=== PATIENT | male | born 1935 | race Caucasian/White ===

== ENCOUNTER → 2017-04-05 | Outpatient (CLI) | payer MEDICARE, BC ==
[~2017-04-05] MED LIST: ACET-1966 PO; ALL300 PO; AMIO400T9 PO; AMLO2.5T74 PO; ASPI-1471 PO; ASPI-757 PO; ASPI81TA94 PO; ATE50 PO; ATEN-1 PO; ATOR10TA65 PO; ATOR20TA65 PO; ATOR40TA24 PO; BIMA2.5D5 OP; BIMOD OP; CEFU250T11 PO; CEP500 PO; CEPH500T7 PO; CIPR-344 PO; CLIN-75 PO; FAM20 PO; FAMO20TA28 PO; FLUT16SP19 NS; FURO-45 PO; FURO-47 PO; FURO20TA19 PO; IBUP600T22 PO; LEVO50TA86 PO; LOR5/325 PO; MEPE50TA29 PO; METO100T20 PO; OLME1TAB53 PO; OLME20TA PO; OLME40TA17 PO; PHEN200T32 PO; POTA20PA25 PO; POTA20TA94 PO; SIMV-44 PO; SULF-198 PO; WARF6TAB36 PO; [UNRECOGNIZED DRUG - CODE] IV
[2017-04-05 12:34] LABS: PLATELET COUNT, AUTOMATED 172 K/uL (150-450)
== END ==
LOC: LAB 12:27
PROVIDERS: ATTEND Family Medicine
DX: I10 Essential (primary) hypertension (principal); I50.9 Heart failure, unspecified
CPT/HCPCS: 36415; 82040; 82247; 82310; 82374; 82435; 82565; 82947; 84075; 84132; 84155; 84295; 84450; 84460; 84520; 85025

== ENCOUNTER 2017-06-29 10:30 | Outpatient (RCR) | payer MEDICARE, BC ==
--- NOTE | 2017-04-10 15:58 | PT INITIAL EVALUATION ---
MEDICAL DIAGNOSIS: M62.9, R26.89, M54.5 TREATMENT DIAGNOSIS: same and cervical neck pain DATE OF ONSET: 11/08/16 SUBJECTIVE: Urban Richard presents to physical therapy with complaints of neck pain, low back pain, impaired gait, mobility, and imbalance along with increased hamstring tightness. He reports that he feels like his neck pain is the worst and is currently not driving due to his painful neck since he is restricted with turning his heads. As a result, he would like to improve his neck pain and AROM first and then work on his low back pain and then his walking, balance, flexibility, and strength will follow. 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 He then reports that he went to cardiac rehab for a few months. He states that the neck pain developed prior to the valve replacement and cardiac rehab and believes that it was probably 5-6 months ago. He reports that the neck pain is intermittent and rates it to be 3-4/10 when performing aggravating factors such as bending, turning, or is on the move. He states that the neck pain is better with sitting or being still. Furthermore, he reports that he had a fall in December 2016 without any injuries and since the fall he reports that he has been using a cane. He also reports that his low back pain comes and goes and is much better than his neck pain. He reports that his low back pain feels better with Tylenol, being still, and sitting. He reports that his low back pain becomes worse with bending, prolonged standing, prolonged walking, and on the move and rates it to be 1-2/10. He denies the following symptoms: dizziness , tinnitus, nausea, swallowing, abnormal gait: upper limbs, night pain, unexplained weight loss, recent neck or low back surgeries, or any accidents. Pain location is C3-7 facet joints, T5-8 spinous processes, over B PSIS/gluteal folds and described as achy and mild sharp. 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 ROM: Cervical AROM: protrusion: major loss of motion with empty end feel. flexion: moderate loss of motion with empty end feel. retraction: major loss of motion with empty end feel. extension: major loss of motion with empty end feel. lateral flexion R: major loss of motion with empty end feel. lateral flexion L: major loss of motion with empty end feel. rotation R: moderate loss of motion with normal end feel. rotation L: major loss of motion with empty end feel Strength: Core (lower, middle, upper): 4-/5. B hip flexion, extension, abduction , B ankle DF, and B knee flexion: 4-/5. B hip adduction, B knee extension, and B ankle PF: 4/5. Palpation: TTP: C3-7 facet joints, T5-8 spinous processes, over B PSIS/gluteal fold Special Tests: Repeated retraction: pain during the test and better following the test with improved cervical AROM. Repeated retraction and extension: pain during the test and better following the test with improved cervical AROM. Will examine his low back, balance, and gait in the next few weeks once his neck pain has abolished. Mobility: Modified Independent Gait: With cane AD, he demonstrates the following gait mechanics: increased base of support, decreased B step lengths, no LOB, decreased velocity, decreased single limb stance phases, increased double limb support, and decreased B pelvic rotation. Other Objective Findings: Triceps, biceps, and brachioradialis: bilaterally 2+ ASSESSMENT: Corky will benefit from skilled physical therapy to address the listed impairments to improve function and QOL. Based on the signs and symptoms , he demonstrated a cervical derangement that responded well with increased AROM and decreased pain with extension based principles. Short Term Goals 2 weeks: Pt will demonstrate centralized neck pain with increased cervical AROM in all directions to improve function and QOL. 4 weeks: Pt will demonstrate abolished neck pain with increased cervical AROM in all directions with normalized end feels to improve function and QOL. 6 weeks: Pt will demonstrate centralized low back pain to improve function and QOL. 8 weeks: Pt will demonstrate abolished low back pain with increased lumbar AROM in all directions with normalized end feels to improve function and QOL. 10 weeks: Pt will demonstrate improved hamstring flexibility, increased core strength along with B LE's from baseline to greater than 4/5, along with improved gait mechanics, and improved balance strategies to reduce falls and increased QOL. Patient's Goals improve cervical neck pain along with range of motion and then improve his low back pain and then improve strength, balance, and gait. PLAN: Patient to be seen for Manual Therapy/STM/MET Strengthening/condition Range of Motion Spinal Stabilization Work Hardening/Cond Stretching Neuromuscular Re-ed Closed Chain Program Posture/Body mechanics Gait Trg/Balance Trg Home Exercise Program Therapeutic Activities 2x/Week for 10 weeks If you have any questions, comments, or concerns about this report or plan, please contact me at . Thank you, Georges Leonardo, PT, DPT MTDD
--- NOTE | 2017-05-29 09:41 | PT PLAN OF CARE ---
Physician: Ava Navarrete MD Patient is being seen: 2x/week Therapist: Georges Leonardo, PT, DPT Medical Diagnosis: M62.9, R26.89, M54.5 Treatment Diagnosis: same and cervical neck pain Date of Onset: 11/08/16 Date of Initial Evaluation: 04/10/17 Date patient was last seen: 05/28/17 Number of treatments: 10 Number of cancellations/No shows: 0 INTERVENTIONS: Manual Therapy/STM/MET Strengthening/condition Range of Motion Spinal Stabilization Work Hardening/Cond Stretching Neuromuscular Re-ed Closed Chain Program Posture/Body mechanics Gait Trg/Balance Trg Home Exercise Program Therapeutic Activities GOALS: 2 weeks: Pt will demonstrate centralized neck pain with increased cervical AROM in all directions to improve function and QOL.MET 4 weeks: Pt will demonstrate abolished neck pain with increased cervical AROM in all directions with normalized end feels to improve function and QOL. MET 6 weeks: Pt will demonstrate centralized low back pain to improve function and QOL. 8 weeks: Pt will demonstrate abolished low back pain with increased lumbar AROM in all directions with normalized end feels to improve function and QOL. 10 weeks: Pt will demonstrate improved hamstring flexibility, increased core strength along with B LE's from baseline to greater than 4/5, along with improved gait mechanics, and improved balance strategies to reduce falls and increased QOL. PATIENT'S GOAL: improve cervical neck pain along with range of motion and then improve his low back pain and then improve strength, balance, and gait. Status of Patient's Goals: Progressing Patient Compliance: Good Prognosis: Good Reasons for continuing therapy: This is a progress note for Corky Ramos. He reports that he is doing well. He reports that he feels like his neck pain has resolved. He reports that his neck motion has increased and is no longer painful. He reports that he would like to transition from treating his neck pain to improving his balance and gait mechanics along with improving his endurance. He has met all of his goals within his neck. His neck disability went from 34% impairment to 4.4%, which is a significant improvement. Moving forward, we will continue to improve posture via stretches and home stretches along with improving balance strategies and gait mechanics. We would also like to address his core and B LE strength to return to prior level of function. Posture: He demonstrated forward head, increased thoracic kyphosis, and decreased lumbar lordosis. ROM: Cervical AROM: protrusion: minimal loss of motion with normal end feel. flexion: minimal loss of motion with normal end feel. retraction: minimal loss of motion with normal end feel. extension: minimal of motion with normal end feel. lateral flexion R: minimal loss of motion with normal end feel. lateral flexion L: minimal loss of motion with normal end feel. rotation R: minimal loss of motion with normal end feel. rotation L: minimal loss of motion with normal end feel. Strength: Core (lower, middle, upper): 4-/5. B hip flexion, extension, abduction , B ankle DF, and B knee flexion: 4-/5. B hip adduction, B knee extension, and B ankle PF: 4/5. Palpation: TTP: over B PSIS/gluteal fold Special Tests: Repeated retraction with L side bending: pain during the test and better following the test with improved cervical AROM. Will examine his low back, balance, and gait on the next session Mobility: Modified Independent If you have any questions, please contact me at [phone]. Thank you, Georges Leonardo, PT, DPT MIKKI
[~2017-06-29 10:30] MED LIST changes: +ALLO-119 PO; +AMIO400T10 PO; -AMIO400T9 PO; +OLM20 PO; -OLME20TA PO
--- NOTE | 2017-06-29 11:30 | PT PLAN OF CARE ---
Physician: Ava Navarrete MD Patient is being seen: 2x/week Therapist: Georges Leonardo, PT, DPT Medical Diagnosis: M62.9, R26.89, M54.5 Treatment Diagnosis: same and cervical neck pain Date of Onset: 11/08/16 Date of Initial Evaluation: 04/10/17 Date patient was last seen: 06/29/17 Number of treatments: 19 Number of cancellations/No shows: 1 INTERVENTIONS: Manual Therapy/STM/MET Strengthening/condition Range of Motion Spinal Stabilization Work Hardening/Cond Stretching Neuromuscular Re-ed Closed Chain Program Posture/Body mechanics Gait Trg/Balance Trg Home Exercise Program Therapeutic Activities GOALS: 2 weeks: Pt will demonstrate centralized neck pain with increased cervical AROM in all directions to improve function and QOL.MET 4 weeks: Pt will demonstrate abolished neck pain with increased cervical AROM in all directions with normalized end feels to improve function and QOL. MET 6 weeks: Pt will demonstrate centralized low back pain to improve function and QOL. MET 8 weeks: Pt will demonstrate abolished low back pain with increased lumbar AROM in all directions with normalized end feels to improve function and QOL. MET 10 weeks: Pt will demonstrate improved hamstring flexibility, increased core strength along with B LE's from baseline to greater than 4/5, along with improved gait mechanics, and improved balance strategies to reduce falls and increased QOL. MET PATIENT'S GOAL: improve cervical neck pain along with range of motion and then improve his low back pain and then improve strength, balance, and gait. Status of Patient's Goals: Progressing Patient Compliance: Good Prognosis: Good Reasons for continuing therapy: This is a discharge note for [facility]. He reports that he is doing much better. He reports that his neck is doing well. He denies any neck pain and states that his range of motion has significantly improved with his specific exercise. He reports that he feels like his strength , walking, endurance, pain is much better than it was prior to his illness. He reports that he is doing his home exercise program and does not current have any problems. He has progressed well within PT and has demonstrated the following improvements: neck pain and disability outcome measure improved from 34% to 4.4%, which is a significant amount, cervical AROM improved in all directions with normal-muscular end feels, and his balance strategies improved in all conditions (complaint surface, eyes opened/eyes closed, SLS, normal base of support, decreased based of support). Furthermore, he demonstrated improvements with core and B LE strength along with improved flexibility, however, his posture and flexibility is perfect, it will improve with his home exercise program if he continues to be diligent with it. He has met all of his goals. As a result, he will be discharged from PT. Posture: He demonstrated forward head, increased thoracic kyphosis, and decreased lumbar lordosis. ROM: Cervical AROM: protrusion: minimal loss of motion with normal end feel. flexion: minimal loss of motion with normal end feel. retraction: minimal loss of motion with normal end feel. extension: minimal of motion with normal end feel. lateral flexion R: minimal loss of motion with normal end feel. lateral flexion L: minimal loss of motion with normal end feel. rotation R: minimal loss of motion with normal end feel. rotation L: minimal loss of motion with normal end feel. Strength: Core (lower, middle, upper): 4/5. B hip flexion, extension, abduction , B ankle DF, and B knee flexion: 4+/5. B hip adduction, B knee extension, and B ankle PF: 4+/5. Balance: Firm surface, eyes opened, normal base of support: 60 seconds, firm surface, eyes closed, normal base of support: 60 seconds. firm surface, eyes closed, decreased base of support: 60 seconds, firm surface, eyes opened, decreased base of support: 60 seconds, complaint surface, eyes opened, normal base of support: 60 seconds, complaint surface, eyes closed, normal base of support: 60 seconds. complaint surface, eyes opened, decreased base of support: 60 seconds. complaint surface, eyes closed, decreased base of support: 60 seconds. compliant surface, tandem stance R/L: 30 seconds with eyes opened. compliant surface, tandem stance R/L, eye closed: 5-10 seconds. Mobility: Modified Independent If you have any questions, please contact me at [phone]. Thank you, Georges Leonardo, PT, DPT ELLEND
[2017-07-10] MEDS ORDERED: LEVO50TA86 PO (09:29)
== END 2017-07-09 ==
LOC: PT 10:30
PROVIDERS: ATTEND Family Medicine
DX: M62.9 Disorder of muscle, unspecified (principal); R26.89 Other abnormalities of gait and mobility; M54.5 Low back pain; M54.2 Cervicalgia; Z95.0 Presence of cardiac pacemaker; Z95.2 Presence of prosthetic heart valve
CPT/HCPCS: 97163

== ENCOUNTER → 2017-09-03 | Outpatient (CLI) | payer MEDICARE, BC ==
[~2017-09-03] MED LIST changes: +POTA20TA10 PO; +WARF6TAB13 PO; -WARF6TAB36 PO
[2017-09-03 09:54] LABS: PLATELET COUNT, AUTOMATED 154 K/uL (150-450)
== END ==
LOC: LAB 09:35
PROVIDERS: ATTEND Internal Medicine Nephrology
DX: Z12.9 Encounter for screening for malignant neoplasm, site unspecified (principal); N18.3 Chronic kidney disease, stage 3 (moderate); R80.1 Persistent proteinuria, unspecified; D50.9 Iron deficiency anemia, unspecified
CPT/HCPCS: 36415; 82040; 82247; 82310; 82374; 82435; 82565; 82570; 82728; 82947; 83540; 83550; 84075; 84132; 84155; 84156; 84295; 84450; 84460; 84520; 84550; 85025

== ENCOUNTER 2017-11-03 18:59 | Observation (INO) | payer MEDICARE, BC ==
[~2017-11-03] VITALS: Ht 172.7 cm; Wt 74.6 kg
--- NOTE | 2017-11-03 19:30 | ER Report ---
History and Physical Time Seen By MD: 19:11 Hx. of Stated Complaint: Pt is reporting back pain for a few weeks. No known falls. Pain is worse tonight. HPI/ROS CHIEF COMPLAINT: low back pain HISTORY OF PRESENT ILLNESS: This is an 82 year old male. He is having low back pain, both sides, just above the hips. Has some history of chronic pain in this area, but worsened today. He did some exercising at the [employer] yesterday. No particular activity hurt his back. He had the pain this morning, worsening through the day. No radiation. No pain into the legs and no numbness in the legs. Worsens with movement. Has several bowel movements daily, normal today. Has urinated without pain, urine a darker yellow color. No blood in the stools. No nausea or vomiting. Eating and drinking alright today. No fevers or chills, but has been a little sweaty today. No chest pain or shortness of breath. REVIEW OF SYSTEMS: As above. Allergies: Coded Allergies: vancomycin (Unverified Allergy, Severe, ITCHING, RASH, 03/22/16) hydrocodone (Verified Allergy, Mild, NAUSEA AND VOMITING , 03/22/16) Penicillins (Verified Allergy, Unknown, 03/22/16) phenazopyridine (Verified Allergy, Unknown, NAUSEA AND VOMITING, 03/22/16) adhesive tape (Verified Adverse Reaction, Mild, 03/22/16) Home Meds Active Scripts Atorvastatin Calcium (ATORVASTATIN CALCIUM) 10 Mg Tablet, 1 TAB PO QDAY for 90 Days, #90 TAB 4 Refills Prov:MANAS RAMIREZ MD 08/28/17 Potassium Chloride (Potassium Chloride) 20 Meq Tablet.er, 20 MEQ PO DAILY for 90 Days, #90 TAB 4 Refills Prov:MANAS RAMIREZ MD 08/10/17 Levothyroxine Sodium (LEVOTHYROXINE SODIUM) 50 Mcg Tablet, 1 TAB PO QDAY, #90 TAB 4 Refills Prov:MANAS RAMIREZ MD 07/10/17 Allopurinol (ZYLOPRIM) 300 Mg Tablet, 1 TAB PO QDAY, #90 TAB 4 Refills Prov:MANAS RAMIREZ MD 06/08/17 Furosemide (FUROSEMIDE) 40 Mg Tablet, 1 TAB PO DAILY, #90 TAB 3 Refills Prov:MANAS RAMIREZ MD 04/27/17 Metoprolol Succinate (METOPROLOL SUCCINATE) 100 Mg Tab.er.24h, 1 TAB PO QDAY, # 90 TAB 4 Refills Prov:MANAS RAMIREZ MD 04/11/17 Reported Medications Aspirin (ASPIR 81) 81 Mg Tablet.dr, 1 TAB PO QDAY, TAB 04/05/17 Discontinued Reported Medications Clindamycin Hcl (CLINDAMYCIN HCL) 150 Mg Capsule, 4 CAP PO DIRECTED 4 caps 1 hour prior to dental appt. 04/05/17 Past Medical/Surgical History Renal cancer with left nephrectomy, partial cystectomy, chronic kidney disease, pacemaker, aortic valve replacement, hypertension, hypothyroidism, dementia, low back pain Patient with DNR/DNI status. Reviewed Nurses Notes: Yes Hx Smoking: No Smoking Status: Never Smoker Exposure to Second Hand Smoke?: No Hx Substance Use Disorder: No Hx Alcohol Use: Yes (RARE) Constitutional Vital Sign - Last 24 Hours 11/03/17 11/03/17 11/03/17 11/03/17 19:05 19:07 19:09 19:14 Temp 99.3 Pulse 85 77 71 Resp 16 B/P (MAP) 136/97 136/97 (110) Pulse Ox 93 93 94 O2 Delivery Room Air 11/03/17 11/03/17 11/03/17 11/03/17 19:19 19:30 19:34 19:42 Pulse 71 70 B/P (MAP) 118/75 (89) 125/84 (98) Pulse Ox 91 91 11/03/17 11/03/17 11/03/17 11/03/17 19:49 20:00 20:20 20:50 Pulse 72 70 70 B/P (MAP) 104/84 (91) Pulse Ox 89 91 11/03/17 11/03/17 11/03/17 11/03/17 20:55 21:00 21:02 21:10 Pulse 70 76 B/P (MAP) 132/89 (103) 132/89 (103) Pulse Ox 88 91 11/03/17 11/03/17 11/03/17 11/03/17 21:25 21:30 21:40 21:55 Pulse 74 75 81 B/P (MAP) 133/86 (102) Pulse Ox 91 93 91 11/03/17 11/03/17 11/03/17 11/03/17 22:00 22:15 22:30 22:45 Pulse 78 77 81 73 B/P (MAP) 122/90 (101) 116/90 (99) Pulse Ox 87 91 89 92 11/03/17 11/03/17 11/03/17 11/03/17 22:50 22:55 23:00 23:10 Pulse 70 70 70 B/P (MAP) 104/72 (83) Pulse Ox 92 91 92 11/03/17 11/03/17 11/03/17 23:25 23:30 23:40 Pulse 75 70 B/P (MAP) 104/70 (81) Pulse Ox 93 92 Physical Exam General Appearance: The patient is alert. no acute distress at rest. Has some distress when he tries to sit up or move. Eyes: Pupils are equal, round. No pallor, injection or icterus. ENT: Mucous membranes are moist. Neck: Supple and non tender. Respiratory: Lungs are clear to auscultation. Cardiovascular: Regular rate and rhythm. No murmurs, gallops or rubs. Normal capillary refill. No edema. Normal DP and PT pulses in the feet. Gastrointestinal: Abdomen is soft, some pain with deep palpation in the right lower abdomen. Nondistended. No rebound or guarding. Normal active bowel sounds. No pulsatile or other masses. Neurological: Alert and oriented x3. No focal neurologic deficits. Normal sensation in the lower extremities bilaterally. Diminished pulses, but equal. Skin: Warm and dry. No rashes. Musculoskeletal: Extremities without pain. Nor Full range of motion. Pain in the lower lumbar area both sides, paraspinous area with tightness, but no pain right over the spine. minimal sciatic area pain. No pain in the upper back. DIFFERENTIAL DIAGNOSIS: After history and physical exam, differential diagnosis was considered for low back pain, appears to be muscle spasm, but with a component in the right lower abdomen, concerning for other intraabdominal pathology, but less likely than simple back pain, also consider urinary tract infection. Medical Decision Making Data Points Result Diagram: 11/03/17193211/03/171932 Laboratory Hematology Test 11/03/17 19:33 11/03/17 20:16 Red Blood Count 4.48 M/uL (4.00-5.60) Mean Corpuscular Volume 95.2 fL (80.0-96.0) Mean Corpuscular Hemoglobin 32.8 pg (26.0-33.0) Mean Corpuscular Hemoglobin Concent 34.5 g/dL (32.0-36.0) Red Cell Distribution Width 14.8 % (11.5-14.5) Mean Platelet Volume 8.0 fL (7.2-11.1) Neutrophils (%) (Auto) 72.7 % (39.4-72.5) Lymphocytes (%) (Auto) 14.9 % (17.6-49.6) Monocytes (%) (Auto) 11.0 % (4.1-12.4) Eosinophils (%) (Auto) 0.5 % (0.4-6.7) Basophils (%) (Auto) 0.9 % (0.3-1.4) Nucleated RBC Relative Count (auto) 0.1 /100WBC Neutrophils # (Auto) 8.3 K/uL (2.0-7.4) Lymphocytes # (Auto) 1.7 K/uL (1.3-3.6) Monocytes # (Auto) 1.2 K/uL (0.3-1.0) Eosinophils # (Auto) 0.1 K/uL (0.0-0.5) Basophils # (Auto) 0.1 K/uL (0.0-0.1) Nucleated RBC Absolute Count (auto) 0.01 K/uL Erythrocyte Sedimentation Rate 29 mm/HOUR (0-20) Sodium Level 141 mmol/L (137-145) Potassium Level 4.0 mmol/L (3.5-5.0) Chloride Level 105 mmol/L (98-107) Carbon Dioxide Level 23 mmol/L (22-30) Blood Urea Nitrogen 27 mg/dl (9-21) Creatinine 1.40 mg/dl (0.66-1.25) Glomerular Filtration Rate Calc 48.5 Random Glucose 108 mg/dl (75-110) Calcium Level 8.8 mg/dl (8.4-10.2) Total Bilirubin 1.1 mg/dl (0.2-1.3) Aspartate Amino Transf (AST/SGOT) 27 U/L (0-35) Alanine Aminotransferase (ALT/SGPT) 17 U/L (0-56) Alkaline Phosphatase 49 U/L (0-126) C-Reactive Protein 5.2 mg/dl (<1.0) Total Protein 7.6 g/dl (6.3-8.2) Albumin 4.1 g/dl (3.5-5.0) Urine Color Yellow Urine Clarity Clear Urine pH 6.0 pH (4.8-9.5) Urine Specific [place] 1.013 Urine Protein Negative mg/dL (NEGATIVE) Urine Glucose (UA) Negative mg/dL (NEGATIVE) Urine Ketones Negative mg/dL (NEGATIVE) Urine Blood Small (NEGATIVE) Urine Nitrite Negative (NEGATIVE) Urine Bilirubin Negative (NEGATIVE) Urine Urobilinogen Negative mg/dL (0.2-1.9) Urine Leukocyte Esterase Negative (NEGATIVE) Urine RBC 7 /HPF (0-2/HPF) Urine WBC 4 /HPF (0-5/HPF) Urine Squamous Epithelial Cells Many /LPF (</=FEW) Urine Bacteria Negative /HPF (NONE-FEW) Urine Mucus None /HPF (NONE-FEW) Chemistry Test 11/03/17 19:33 11/03/17 20:16 White Blood Count 11.3 k/uL (4.5-11.0) Red Blood Count 4.48 M/uL (4.00-5.60) Hemoglobin 14.7 g/dL (14.0-18.0) Hematocrit 42.6 % (42.0-52.0) Mean Corpuscular Volume 95.2 fL (80.0-96.0) Mean Corpuscular Hemoglobin 32.8 pg (26.0-33.0) Mean Corpuscular Hemoglobin Concent 34.5 g/dL (32.0-36.0) Red Cell Distribution Width 14.8 % (11.5-14.5) Platelet Count 147 K/uL (150-450) Mean Platelet Volume 8.0 fL (7.2-11.1) Neutrophils (%) (Auto) 72.7 % (39.4-72.5) Lymphocytes (%) (Auto) 14.9 % (17.6-49.6) Monocytes (%) (Auto) 11.0 % (4.1-12.4) Eosinophils (%) (Auto) 0.5 % (0.4-6.7) Basophils (%) (Auto) 0.9 % (0.3-1.4) Nucleated RBC Relative Count (auto) 0.1 /100WBC Neutrophils # (Auto) 8.3 K/uL (2.0-7.4) Lymphocytes # (Auto) 1.7 K/uL (1.3-3.6) Monocytes # (Auto) 1.2 K/uL (0.3-1.0) Eosinophils # (Auto) 0.1 K/uL (0.0-0.5) Basophils # (Auto) 0.1 K/uL (0.0-0.1) Nucleated RBC Absolute Count (auto) 0.01 K/uL Erythrocyte Sedimentation Rate 29 mm/HOUR (0-20) Glomerular Filtration Rate Calc 48.5 Calcium Level 8.8 mg/dl (8.4-10.2) Total Bilirubin 1.1 mg/dl (0.2-1.3) Aspartate Amino Transf (AST/SGOT) 27 U/L (0-35) Alanine Aminotransferase (ALT/SGPT) 17 U/L (0-56) Alkaline Phosphatase 49 U/L (0-126) C-Reactive Protein 5.2 mg/dl (<1.0) Total Protein 7.6 g/dl (6.3-8.2) Albumin 4.1 g/dl (3.5-5.0) Urine Color Yellow Urine Clarity Clear Urine pH 6.0 pH (4.8-9.5) Urine Specific [place] 1.013 Urine Protein Negative mg/dL (NEGATIVE) Urine Glucose (UA) Negative mg/dL (NEGATIVE) Urine Ketones Negative mg/dL (NEGATIVE) Urine Blood Small (NEGATIVE) Urine Nitrite Negative (NEGATIVE) Urine Bilirubin Negative (NEGATIVE) Urine Urobilinogen Negative mg/dL (0.2-1.9) Urine Leukocyte Esterase Negative (NEGATIVE) Urine RBC 7 /HPF (0-2/HPF) Urine WBC 4 /HPF (0-5/HPF) Urine Squamous Epithelial Cells Many /LPF (</=FEW) Urine Bacteria Negative /HPF (NONE-FEW) Urine Mucus None /HPF (NONE-FEW) Urinalysis Test 11/03/17 20:16 Urine Color Yellow Urine Clarity Clear Urine pH 6.0 pH (4.8-9.5) Urine Specific [place] 1.013 Urine Protein Negative mg/dL (NEGATIVE) Urine Glucose (UA) Negative mg/dL (NEGATIVE) Urine Ketones Negative mg/dL (NEGATIVE) Urine Blood Small (NEGATIVE) Urine Nitrite Negative (NEGATIVE) Urine Bilirubin Negative (NEGATIVE) Urine Urobilinogen Negative mg/dL (0.2-1.9) Urine Leukocyte Esterase Negative (NEGATIVE) Urine RBC 7 /HPF (0-2/HPF) Urine WBC 4 /HPF (0-5/HPF) Urine Squamous Epithelial Cells Many /LPF (</=FEW) Urine Bacteria Negative /HPF (NONE-FEW) Urine Mucus None /HPF (NONE-FEW) EKG/Imaging Imaging ABDOMEN/PELVIS W/O CONTRAST COMPARISONS: CT abdomen pelvis with without contrast dated August 05, 2013. ADDITIONAL PERTINENT HISTORY: Low back pain and right lower quadrant abdominal pain. TECHNIQUE: Multiple axial images are obtained from the lung bases through the lesser trochanters without IV contrast. One of the following dose optimization techniques was utilized in the performance of this exam: Automated exposure control; adjustment of the mA and/or kV according to the patient's size; or use of an iterative reconstruction technique. Specific details can be referenced in the facility's radiology CT exam operational policy. FINDINGS: Lung bases: Minimal scarring involving the lingula.. Free air and free fluid: None. Liver: Negative for a noncontrasted examination.. Spleen: Negative for a noncontrasted examination. Adrenal glands: Mild prominence of both adrenal glands likely representing mild hypertrophy.. Kidneys, ureters and urinary bladder: Multiple low-attenuation lesions involving the right kidney consistent with simple cysts. Atrophic changes involving the left kidney.. Stable minimal prominence involving the left anterior wall of the urinary bladder likely a benign finding given stability since 2013. Pancreas: Grossly negative. Gallbladder: Negative.. Bowel and mesentery: Negative. Lymph node assessment: Negative. Abdominal pelvic vasculature: Calcified atherosclerotic plaque involving the abdominal aorta and its major branches.. Intrapelvic contents: Moderate enlargement of the prostate. Otherwise negative. Surrounding soft tissues: Negative. Osseous structures: Spondylitic change involving the lumbar spine. No acute appearing bony abnormalities.. IMPRESSION: No acute intra-abdominal or intrapelvic process. Report Dictated By: Manny Boyce MD at 11/03/2017 9:37 PM L-SPINE W/O CONTRAST COMPARISONS: None. ADDITIONAL PERTINENT HISTORY: Low back pain. TECHNIQUE: Multiple axial images were obtained through the lumbar spine without IV contrast. Coronal and sagittal reformatted images were obtained off the axial source data. One of the following dose optimization techniques was utilized in the performance of this exam: Automated exposure control; adjustment of the mA and/or kV according to the patient's size; or use of an iterative reconstruction technique. Specific details can be referenced in the facility's radiology CT exam operational policy. FINDINGS: Vertebral body heights and alignment: Mild scoliotic curvature convex to the left centered at L4.. Vertebral bodies: Spondylitic change at multiple levels with facet hypertrophic changes and anteriorly and posteriorly directed osteophytes at multiple levels. No acute appearing bony abnormalities.. Disc spaces: Disc space narrowing involving the lower lumbar spine.. Thoraco-lumbar junction: Negative. Surrounding soft tissues: <Atherosclerotic disease of the abdominal aorta and its major branches. Large simple appearing cysts involving the right kidney. Marked atrophic changes involving the left kidney. Visualized bony pelvis: Negative. IMPRESSION: 1. Multilevel spondylitic change as discussed above. 2. No acute appearing bony abnormalities. Report Dictated By: Manny Boyce MD at 11/03/2017 9:48 PM ED Course/Re-evaluation Clinical Indication for ER IV: Hydration, IV Access ED Course Initially had an IV started and given Norflex 30mg IV. Minimal improvement. Labs obtained and ESR and CRP elevated with mild elevation of WBC with slight left shift. Renal function consistent with his chronic kidney disease, but not worsened from baselines. He had a CT scan done without contrast of the abdomen and pelvis with reconstruction of the lumbar spine, all without contrast. No major abnormalities noted as shown above, mild spondylitic changes. Pain not controlled, so given Morphine 4mg and Zofran 4mg IV. Reviewed the findings with the patient's family members as well as over the phone with family member who is an oncologist. Patient given Dilaudid 0.5mg IV. Still extreme pain in low back when trying to move. Still no radiation or neurologic changes. Gave Decadron 10mg IV. Discussed with Dr. Munoz, hospitalist, regarding admission for low back pain, intractable. Cannot do an MRI of the lumbar spine due to presence of a pacemaker. Will plan on pain control with re-evaluation and physical therapy evaluation. Urine with a few white and red cells on microscopic, but many squamous epithelial cells, Culture of urine ordered. Decision to Disposition Date: Nov 03, 2017 Decision to Disposition Time: 23:30 Depart Departure Latest Vital Signs Vital Signs Date Time Temp Pulse Resp B/P (MAP) Pulse Ox O2 Delivery O2 Flow Rate FiO2 11/03/17 23:40 70 92 11/03/17 23:30 104/70 (81) 11/03/17 19:05 99.3 16 Room Air Impression: Primary Impression: Acute low back pain Condition: Condition Unchanged Disposition: Admitted from ER Referrals: MANAS RAMIREZ MD (PCP) Problem Qualifiers Primary Impression: Acute low back pain Back pain laterality: bilateral Sciatica presence: without sciatica Qualified Codes: M54.5 - Low back pain ARMANDO MAO MD Nov 03, 2017 19:30
[2017-11-03] MEDS ORDERED: ORPHENADRINE 60MG/2ML INJ IVP ONE (19:35)
[2017-11-03 19:45] LABS: PLATELET COUNT, AUTOMATED 147 K/uL (150-450)
[2017-11-03] MEDS ORDERED: IOPAMIDOL 76% 100 ML INFUS BTL 0 ML ONE (20:11)
[2017-11-03] MEDS ORDERED: ONDANSETRON 4 MG/2 ML VIAL IVP ONE (21:30)
[2017-11-03] MEDS ORDERED: MORPHINE 4 MG/ML SDV IVP ONE (21:30)
--- NOTE | 2017-11-03 21:51 | RADIOLOGY IMAGING REPORT ---
FACILITY: [facility] PATIENT NAME: Corky Ramos : 1935 MR: [id number] V: [id number] EXAM DATE: ORDERING PHYSICIAN: ARMANDO MAO TECHNOLOGIST: Location: [facility] Patient: Corky Ramos : 1935 Visit/Account:[id number] Date of Sevice: 11/03/2017 ADDENDUM #1 Addendum: Additional history has now been provided that the patient has had a previous left nephrecto my. There are findings of a small partially calcified soft tissue density measuring 1.8 cm in the lef t renal fossa. This could represent underlying scar tissue with partial calcification or potentially partially calcified remote small postoperative hematoma. This has benign characteristics. Report Dictated By: Manny Boyce MD at 11/13/2017 10:13 PM Report E-Signed By: Manny Boyce MD at 11/13/2017 10:14 PM ORIGINAL REPORT ABDOMEN/PELVIS W/O CONTRAST COMPARISONS: CT abdomen pelvis with without contrast dated August 05, 2013. ADDITIONAL PERTINENT HISTORY: Low back pain and right lower quadrant abdominal pain. TECHNIQUE: Multiple axial images are obtained from the lung bases through the lesser trochanters with out IV contrast. One of the following dose optimization techniques was utilized in the performance o f this exam: Automated exposure control; adjustment of the mA and/or kV according to the patient's si ze; or use of an iterative reconstruction technique. Specific details can be referenced in the [facility]'s radiology CT exam operational policy. FINDINGS: Lung bases: Minimal scarring involving the lingula.. Free air and free fluid: None. Liver: Negative for a noncontrasted examination.. Spleen: Negative for a noncontrasted examination. Adrenal glands: Mild prominence of both adrenal glands likely representing mild hypertrophy.. Kidneys, ureters and urinary bladder: Multiple low-attenuation lesions involving the right kidney con sistent with simple cysts. Atrophic changes involving the left kidney.. Stable minimal prominence inv olving the left anterior wall of the urinary bladder likely a benign finding given stability since . Pancreas: Grossly negative. Gallbladder: Negative.. Bowel and mesentery: Negative. Lymph node assessment: Negative. Abdominal pelvic vasculature: Calcified atherosclerotic plaque involving the abdominal aorta and its major branches.. Intrapelvic contents: Moderate enlargement of the prostate. Otherwise negative. Surrounding soft tissues: Negative. Osseous structures: Spondylitic change involving the lumbar spine. No acute appearing bony abnormalit ies.. IMPRESSION: No acute intra-abdominal or intrapelvic process. Report Dictated By: Manny Boyce MD at 11/03/2017 9:37 PM Report E-Signed By: Manny Boyce MD at 11/03/2017 9:48 PM WSN:[id number]
--- NOTE | 2017-11-03 21:54 | RADIOLOGY IMAGING REPORT ---
FACILITY: [facility] [place] PATIENT NAME: Corky Ramos : 1935 MR: [id number] V: [id number] EXAM DATE: ORDERING PHYSICIAN: ARMANDO MAO TECHNOLOGIST: Location: [facility] Patient: Corky Ramos : 1935 Visit/Account:[id number] Date of Sevice: 11/03/2017 L-SPINE W/O CONTRAST COMPARISONS: None. ADDITIONAL PERTINENT HISTORY: Low back pain. TECHNIQUE: Multiple axial images were obtained through the lumbar spine without IV contrast. Flood l and sagittal reformatted images were obtained off the axial source data. One of the following dose optimization techniques was utilized in the performance of this exam: Automated exposure control; ad justment of the mA and/or kV according to the patient's size; or use of an iterative reconstruction technique. Specific details can be referenced in the facility's radiology CT exam operational policy . FINDINGS: Vertebral body heights and alignment: Mild scoliotic curvature convex to the left centered at L4.. Vertebral bodies: Spondylitic change at multiple levels with facet hypertrophic changes and anteriorl y and posteriorly directed osteophytes at multiple levels. No acute appearing bony abnormalities.. Disc spaces: Disc space narrowing involving the lower lumbar spine.. Thoraco-lumbar junction: Negative. Surrounding soft tissues: <Atherosclerotic disease of the abdominal aorta and its major branches. La rge simple appearing cysts involving the right kidney. Marked atrophic changes involving the left kid juli. Visualized bony pelvis: Negative. IMPRESSION: 1. Multilevel spondylitic change as discussed above. 2. No acute appearing bony abnormalities. Report Dictated By: Manny Boyce MD at 11/03/2017 9:48 PM Report E-Signed By: Manny Boyce MD at 11/03/2017 9:51 PM WSN:[id number]
[2017-11-03] MEDS ORDERED: DEXAMETHASONE SOD PHOS 10MG/ML IVP ONE (22:20)
[2017-11-03] MEDS ORDERED: NS(*) 0.9% 500 ML BAG 500 ML IV ONE (22:20)
[2017-11-03] MEDS ORDERED: HYDROMORPHONE HCL 1 MG/ML SYRINGE IVP ONE (22:30)
[2017-11-04 00:18] VITALS: BP 123/74
[2017-11-04] MEDS ORDERED: FLUSH 10 ML SYR IVP PRN (01:30)
[2017-11-04] MEDS ORDERED: INFLUENZA VIRUS VAC 0.5 ML SYR IM ONLY ONE (01:30)
[2017-11-04] MEDS ORDERED: traMADol 50 MG TAB PO PRN (01:30)
[2017-11-04] MEDS ORDERED: CYCLOBENZAPRINE HCL 10 MG TAB PO PRN (01:30)
[2017-11-04] MEDS ORDERED: ACETAMINOPHEN 325 MG TAB PO PRN (01:30)
--- NOTE | 2017-11-04 01:58 | History & Physical ---
History of Present Illness Chief Complaint Back Pain History of Present Illness 82M presented with back pain sudden in onset 08.04 am. Reports worse with standing or sitting, sharp, non radiating located over bilateral iliac crests. pain is there more often than not may be present on one side or both. 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 ESR mildly elevated, CRP more significant elevation. Reports having dental work done one month ago but no other recent instrumentation or procedures. Imaging including L spine and abdomen pelvis CT without contrast were negative for acute pathology. Denies chills, n/v, diarrhea, constipation, chest pain, SOB, cough, dysuria, change in urinary incontinence or any fecal incontinence.. Reports doing more stretching exercises Sunday at senior activity but no immediate pain at that time. History Problems: (1) Dementia (2) Carcinoma of bladder (3) H/O unilateral nephrectomy Home Meds Active Scripts Atorvastatin Calcium (ATORVASTATIN CALCIUM) 10 Mg Tablet, 1 TAB PO QDAY for 90 Days, #90 TAB 4 Refills Prov:MANAS RAMIREZ MD 08/28/17 Potassium Chloride (Potassium Chloride) 20 Meq Tablet.er, 20 MEQ PO DAILY for 90 Days, #90 TAB 4 Refills Prov:MANAS RAMIREZ MD 08/10/17 Levothyroxine Sodium (LEVOTHYROXINE SODIUM) 50 Mcg Tablet, 1 TAB PO QDAY, #90 TAB 4 Refills Prov:MANAS RAMIREZ MD 07/10/17 Allopurinol (ZYLOPRIM) 300 Mg Tablet, 1 TAB PO QDAY, #90 TAB 4 Refills Prov:MANAS RAMIREZ MD 06/08/17 Furosemide (FUROSEMIDE) 40 Mg Tablet, 1 TAB PO DAILY, #90 TAB 3 Refills Prov:MANAS RAMIREZ MD 04/27/17 Metoprolol Succinate (METOPROLOL SUCCINATE) 100 Mg Tab.er.24h, 1 TAB PO QDAY, # 90 TAB 4 Refills Prov:MANAS RAMIREZ MD 04/11/17 Reported Medications Aspirin (ASPIR 81) 81 Mg Tablet.dr, 1 TAB PO QDAY, TAB 04/05/17 Discontinued Reported Medications Clindamycin Hcl (CLINDAMYCIN HCL) 150 Mg Capsule, 4 CAP PO DIRECTED 4 caps 1 hour prior to dental appt. 04/05/17 Allergies: Coded Allergies: vancomycin (Unverified Allergy, Severe, ITCHING, RASH, 03/22/16) hydrocodone (Verified Allergy, Mild, NAUSEA AND VOMITING , 03/22/16) Penicillins (Verified Allergy, Unknown, 03/22/16) phenazopyridine (Verified Allergy, Unknown, NAUSEA AND VOMITING, 03/22/16) adhesive tape (Verified Adverse Reaction, Mild, 03/22/16) Patient History: FH: lymphoma CHILD Hx Smoking: No Smoking Status: Never Smoker Exposure to Second Hand Smoke?: No Caffeine Intake: Coffee Caffeine/Cups Per Day: 1 cup "every now and then" Hx Alcohol Use: Yes (RARE) Hx Substance Use Disorder: No Social Drug Use: Never Review of Systems All Systems Reviewed/Normal: Yes, Except as Noted Musculoskeletal: Pain Exam Vital Signs Vital Signs Date Time Temp Pulse Resp B/P (MAP) Pulse Ox O2 Delivery O2 Flow Rate FiO2 11/04/17 00:18 99.0 75 123/74 (90) 92 Nasal Cannula 1.0 11/03/17 19:05 16 General Appearance: Alert, Awake, No Acute Distress Neuro: No Gross deficits Eyes: PERRLA ENT: Normal Neck: No Masses Cardiovascular: Normal Rhythm & Peripheral Pulses Respiratory: No Respiratory Distress, Clear to Auscultation Chest: No Masses GI: Abd Soft and Non-Tender Lymph: Cervical Nodes Benign Musculoskeletal: Other (ipsilateral pain on straight leg raise bilaterally) Extremities: Soft and Non Tender, Warm, Pulses, Perfused Integumentary: Skin Intact without Lesion / Mass Psych: Alert & Oriented X3 Medical Decision Making Data Points Result Diagram: 11/03/17193211/03/171932 Item Value Date Time C-Reactive Protein 5.2 mg/dl H 11/03/171932 Erythrocyte Sedimentation Rate 29 mm/HOUR H 11/03/171932 Assessment and Plan Problems: (1) Acute low back pain Status: Acute Assessment & Plan: Likely musculoskeletal, no alarm symptoms. CT negative for acute lumbar or abdominal pathology. ESR and CRP mildly elevated, does not appear to be infectious given other clinical parameters. Will begin PRN Tramadol , cyclobenzaprine and warm compresses. PT/OT consultation. (2) Carcinoma of bladder Assessment & Plan: Hx of resection per patient and records review, also L nephrectomy. CT reports atrophied L kidney will discuss with radiology to see if there is any concern for mass given findings on CT and Hx. (3) H/O unilateral nephrectomy Assessment & Plan: As above, will discuss with radiology to verify no concern for mass in area of L nephrectomy. (4) Hypothyroid Assessment & Plan: Continue home Rx. (5) HTN (hypertension) Assessment & Plan: Continue home HTN regimen. Venous Thromboembolism Antithrombotics Is Pt On Any Antithrombotics?: Yes Exam Sepsis Risk: No Definite Risk HUTCHINS BRIANNA LAO DO Nov 04, 2017 01:58
[2017-11-04 06:59] VITALS: BP 110/76
[2017-11-04 07:01] VITALS: BP 110/76
[2017-11-04] MEDS ORDERED: ENOXAPARIN 40 MG/0.4ML SYR SC SCH (09:00)
[2017-11-04] MEDS ORDERED: LEVOTHYROXINE SOD 0.05 MG TAB PO SCH (09:00)
[2017-11-04] MEDS ORDERED: ATORVASTATIN 10 MG TAB PO SCH (09:00)
[2017-11-04] MEDS ORDERED: ASPIRIN 81 MG ENTERIC COATED PO SCH (09:00)
[2017-11-04] MEDS ORDERED: ALLOPURINOL 300 MG TAB PO SCH (09:00)
[2017-11-04] MEDS ORDERED: FUROSEMIDE 40 MG TAB PO SCH (09:00)
[2017-11-04] MEDS ORDERED: METOPROLOL SUCC XL 50 MG TABCR 50 MG TAB.ER.24H PO SCH (09:00)
[2017-11-04] MEDS ORDERED: POTASSIUM CHL 20 MEQ TABCR PO SCH (09:00)
[2017-11-04 11:10] VITALS: BP 94/72
[2017-11-04 11:11] VITALS: Ht 172.7 cm; Wt 74.6 kg
[2017-11-04 15:02] VITALS: BP 101/77
[2017-11-04] MEDS ORDERED: CYCL10TA29 PO (16:48)
[2017-11-04] MEDS ORDERED: TRAM-420 PO (16:48)
[2017-11-04] MEDS ORDERED: ACET-2146 PO (16:48)
--- NOTE | 2017-11-04 16:59 | Hospitalist Depart ---
Discharge Summary Reason for Hosp/Final Diag: (1) Acute low back pain Status: Acute Hospital Course & Plan: Likely musculoskeletal, no alarm symptoms. CT negative for acute lumbar or abdominal pathology. ESR and CRP mildly elevated, does not appear to be infectious given other clinical parameters. He improved with rest. He still has pain with ambulation, but it is tolerable. He will go home with prn APAP, Tramadol, and Flexeril. (2) Carcinoma of bladder Hospital Course & Plan: Hx of resection per patient and records review, also L nephrectomy. CT reported atrophied L kidney but after discussion with the radiologist, he felt that it was relatively unchanged from 2014 and was likely related to sequela of the surgery and not concerning for a mass. (3) H/O unilateral nephrectomy Hospital Course & Plan: As above. (4) Hypothyroid Hospital Course & Plan: Continue home Rx. (5) HTN (hypertension) Hospital Course & Plan: Continue home HTN regimen. Departure Weight (Pounds): 164 Weight (Ounces): 9.0 Result Diagram: 11/03/17193211/03/171932 Item Value Date Time White Blood Count 11.3 k/uL H 11/03/171932 Hemoglobin 14.7 g/dL 11/03/171932 Platelet Count 147 K/uL L 11/03/171932 Creatinine 1.40 mg/dl H 11/03/171932 Blood Urea Nitrogen 27 mg/dl H 11/03/171932 Urine RBC 7 /HPF 11/03/172015 Urine WBC 4 /HPF 11/03/172015 Urine Squamous Epithelial Cells Many /LPF H 11/03/172015 Urine Bacteria Negative /HPF 11/03/172015 White Blood Count 7.5 k/uL 09/03/17 0948 Hemoglobin 15.5 g/dL 09/03/1748 Platelet Count 154 K/uL 09/03/17 0948 Blood Urea Nitrogen 24 mg/dl H 09/03/17 0948 Creatinine 1.40 mg/dl H 09/03/17947 ATIENT: TRESA ROJO ACCT: [id number] LOC: MED U : [id number] AGE/SX: 82/M ROOM: [facility] REG : 11/03/[address]: BRIANNA BUCKLEY : 1935 BED: 274 DIS : STATUS: ADM Lila TLOC: SPEC #: [id number] [place]: 11/03/17 STATUS: RES REQ #: [id number] RECD: 11/03/17 [facility] DR: ARMANDO MAO MD SOURCE: [facility] ENTR: 11/03/[address]: MANAS RAMIREZ MD SPDC: ORDERED: CULT URINE Procedure Result Verified URINE CULTURE Preliminary 11/04/17-9 <10,000 COL/ML GROWTH PRESENT CULTURE REINCUBATED Imaging 11/03/17 Abd/Pelvis CT - No acute intra-abdominal or intrapelvic process. 11/03/[address] - 1. Multilevel spondylitic change as discussed above. 2. No acute appearing bony abnormalities. Condition: Improved Discharge: Home Discharge Instructions Home Meds Active Scripts Tramadol Hcl (TRAMADOL HCL) 50 Mg Tablet, 50 MG PO Q6H Y for PAIN, #10 Take if tylenol doesn't help Prov:DOE DON MD 11/04/17 Atorvastatin Calcium (ATORVASTATIN CALCIUM) 10 Mg Tablet, 1 TAB PO QDAY for 90 Days, #90 TAB 4 Refills Prov:MANAS RAMIREZ MD 08/28/17 Potassium Chloride (Potassium Chloride) 20 Meq Tablet.er, 20 MEQ PO DAILY for 90 Days, #90 TAB 4 Refills Prov:MANAS RAMIREZ MD 08/10/17 Levothyroxine Sodium (LEVOTHYROXINE SODIUM) 50 Mcg Tablet, 1 TAB PO QDAY, #90 TAB 4 Refills Prov:MANAS RAMIREZ MD 07/10/17 Allopurinol (ZYLOPRIM) 300 Mg Tablet, 1 TAB PO QDAY, #90 TAB 4 Refills Prov:MANAS RAMIREZ MD 06/08/17 Furosemide (FUROSEMIDE) 40 Mg Tablet, 1 TAB PO DAILY, #90 TAB 3 Refills Prov:MANAS RAMIREZ MD 04/27/17 Metoprolol Succinate (METOPROLOL SUCCINATE) 100 Mg Tab.er.24h, 1 TAB PO QDAY, # 90 TAB 4 Refills Prov:MANAS RAMIREZ MD 04/11/17 Reported Medications Aspirin (ASPIR 81) 81 Mg Tablet.dr, 1 TAB PO QDAY, TAB 04/05/17 Discontinued Reported Medications Clindamycin Hcl (CLINDAMYCIN HCL) 150 Mg Capsule, 4 CAP PO DIRECTED 4 caps 1 hour prior to dental appt. 04/05/17 Diet: Regular Activity: As Tolerated Special Instructions: Follow up with your PCP if pain is not improving or worsens. Copies to: MANAS RAMIREZ MD Venous Thromboembolism Antithrombotics Is Pt On Any Antithrombotics?: Yes Problem Qualifiers (1) Acute low back pain: Back pain laterality: bilateral Sciatica presence: without sciatica Qualified Codes: M54.5 - Low back pain DOE DON MD Nov 04, 2017 16:59
[2017-11-13] MEDS ORDERED: LIDO700A19 TD (12:23)
[2017-11-13] MEDS ORDERED: DICL100G39 TOP (12:23)
== END 2017-11-04 16:59 | disposition home or self-care (01) ==
LOC: ER 19:31 → MED 23:50 → INTOOBSV 23:50
PROVIDERS: ADMIT Internal Medicine; ATTEND Internal Medicine
DX: M54.5 Low back pain (principal); E03.9 Hypothyroidism, unspecified; Z95.2 Presence of prosthetic heart valve; F03.90 Unspecified dementia, unspecified severity, without behavioral disturbance, psychotic disturbance, mood disturbance, and anxiety; Z66 Do not resuscitate; I12.9 Hypertensive chronic kidney disease with stage 1 through stage 4 chronic kidney disease, or unspecified chronic kidney disease; N18.6 End stage renal disease; Z95.0 Presence of cardiac pacemaker; Z90.5 Acquired absence of kidney; Z85.51 Personal history of malignant neoplasm of bladder
CPT/HCPCS: 72131; 74176; 81001; 85025; 85651; 86140; 87088; 96361; 96372; 96374; 99284; A9270; G0378; J1100; J1170; J1650; J2270; J2360; J2405; J7040; 82040; 82247; 82310; 82374; 82435; 82565; 82947; 84075; 84132; 84155; 84295; 84450; 84460; 84520; Q9967

== ENCOUNTER 2017-11-06 21:55 | Emergency (ER) | payer MEDICARE, BC ==
[2017-11-04 11:11] VITALS: BMI 24.9
[~2017-11-06 21:55] MED LIST changes: +ACET-2146 PO; +CYCL10TA29 PO; +TRAM-420 PO
--- NOTE | 2017-11-06 22:05 | ER Report ---
History and Physical Time Seen By MD: 22:04 HPI/ROS CHIEF COMPLAINT: Bilateral lower back pain HISTORY OF PRESENT ILLNESS: Patient is an 82-year-old male here with complaints of lower back pain. Patient was recently admitted to the hospital for similar pain at which time he received a CAT scan imaging of the abdomen and pelvis, lumbar region which showed osteoarthritic changes. Patient complains currently of severe pain in the bilateral lower back especially with ambulation and weightbearing. Patient has intact lower extremity strength and denies interim trauma. Patient is otherwise well-appearing and in no acute distress. He reportedly was prescribed tramadol and Flexeril however Flexeril was held due to change in mental status. Patient received tramadol shortly prior to arrival and had significant relief of symptoms. Denies fevers, saddle anesthesia, incontinence of bowel or bladder. REVIEW OF SYSTEMS: Constitutional: No fever, no chills. Eyes: [No discharge.] ENT: [No sore throat.] Cardiovascular: [No chest pain, no palpitations.] Respiratory: [No cough, no shortness of breath.] Gastrointestinal: [No abdominal pain, no vomiting.] Genitourinary: [No hematuria.] Musculoskeletal: [No back pain.] Skin: [No rashes.] Neurological: [No headache.] Allergies: Coded Allergies: vancomycin (Unverified Allergy, Severe, ITCHING, RASH, 03/22/16) hydrocodone (Verified Allergy, Mild, NAUSEA AND VOMITING , 03/22/16) Penicillins (Verified Allergy, Unknown, 03/22/16) phenazopyridine (Verified Allergy, Unknown, NAUSEA AND VOMITING, 03/22/16) adhesive tape (Verified Adverse Reaction, Mild, 03/22/16) Home Meds Active Scripts Pregabalin (LYRICA) 25 Mg Cap, 25 MG FT TID for 14 Days, #42 CAP Prov:ZIYAD CANNON DO 11/07/17 Tramadol Hcl (TRAMADOL HCL) 50 Mg Tablet, 50 MG PO Q6H Y for PAIN, #20 TAB 0 Refills Prov:ZIYAD CANNON DO 11/07/17 Acetaminophen 500 Mg Tab (ACETAMINOPHEN EXTRA STRENGTH) 500 Mg Tablet, 1000 MG PO Q8H Y for pain for 14 Days, TAB Prov:DOE DON MD 11/04/17 Tramadol Hcl (TRAMADOL HCL) 50 Mg Tablet, 50 MG PO Q6H Y for PAIN, #10 Take if tylenol doesn't help Prov:DOE DON MD 11/04/17 Cyclobenzaprine Hcl (CYCLOBENZAPRINE HCL) 10 Mg Tablet, 5-10 MG PO Q8H Y for MUSCLE SPASMS, #10 Prov:DOE DON MD 11/04/17 Atorvastatin Calcium (ATORVASTATIN CALCIUM) 10 Mg Tablet, 1 TAB PO QDAY for 90 Days, #90 TAB 4 Refills Prov:MANAS RAMIREZ MD 08/28/17 Potassium Chloride (Potassium Chloride) 20 Meq Tablet.er, 20 MEQ PO DAILY for 90 Days, #90 TAB 4 Refills Prov:MANAS RAMIREZ MD 08/10/17 Levothyroxine Sodium (LEVOTHYROXINE SODIUM) 50 Mcg Tablet, 1 TAB PO QDAY, #90 TAB 4 Refills Prov:MANAS RAMIREZ MD 07/10/17 Allopurinol (ZYLOPRIM) 300 Mg Tablet, 1 TAB PO QDAY, #90 TAB 4 Refills Prov:MANAS RAMIREZ MD 06/08/17 Furosemide (FUROSEMIDE) 40 Mg Tablet, 1 TAB PO DAILY, #90 TAB 3 Refills Prov:MANAS RAMIREZ MD 04/27/17 Metoprolol Succinate (METOPROLOL SUCCINATE) 100 Mg Tab.er.24h, 1 TAB PO QDAY, # 90 TAB 4 Refills Prov:MANAS RAMIREZ MD 04/11/17 Reported Medications Aspirin (ASPIR 81) 81 Mg Tablet.dr, 1 TAB PO QDAY, TAB 04/05/17 Discontinued Reported Medications Clindamycin Hcl (CLINDAMYCIN HCL) 150 Mg Capsule, 4 CAP PO DIRECTED 4 caps 1 hour prior to dental appt. 04/05/17 Hx Smoking: No Smoking Status: Never Smoker Exposure to Second Hand Smoke?: No Hx Substance Use Disorder: No Hx Alcohol Use: Yes (RARE) Constitutional Vital Sign - Last 24 Hours 11/06/17 22:05 Temp 98.2 Pulse 88 Resp 16 B/P (MAP) 122/88 Pulse Ox 90 O2 Delivery Room Air Physical Exam General Appearance: The patient is alert, has no immediate need for airway protection and no signs of toxicity. No acute distress Eyes: Pupils equal and round no pallor or injection. ENT, Mouth: Mucous membranes are moist. Respiratory: There are no retractions, lungs are clear to auscultation. Cardiovascular: Regular rate and rhythm. Gastrointestinal: Abdomen is soft and non tender, no masses, bowel sounds normal. Neurological: No focal neurological deficits, good strength in the lower extremities, sensation intact Skin: Warm and dry, no rashes. Musculoskeletal: Neck is supple non tender. Extremities are nontender, nonswollen and have full range of motion, good strength in lower extremities, good dorsiflexion and plantar flexion of the feet , sensation intact DIFFERENTIAL DIAGNOSIS: After history and physical exam differential diagnosis was considered for osteoarthritis, degenerative changes, muscular weakness, atrophy, musculoskeletal pain Medical Decision Making ED Course/Re-evaluation ED Course Patient is an 82-year-old male here with complaints of bilateral lower back pain after being discharged recently from the hospital for similar pains. She and was being treated with tramadol and hadn't moderate relief of pain after treatment. Family and care technician stopped giving him Flexeril due to mental status changes. After reviewing prior imaging of the abdomen and lumbar spine which showed only degenerative changes and arthritic changes, I completed and x- rays of the hips to rule out fractures or other pathological changes. Again, degenerative and arthritic changes were identified. I discussed in depth with the family treatment options and the decision was made to continue treating the patient on tramadol and having the patient follow up closely with Dr. Ramirez. I supplied the patient with a prescription for tramadol and a low-dose prescription for Lyrica to be filled only after the patient has seen his PCP. Family and patient voiced understanding and agreed with plan. Decision to Disposition Date: Nov 07, 2017 Decision to Disposition Time: 00:15 Depart Departure Latest Vital Signs Vital Signs Date Time Temp Pulse Resp B/P (MAP) Pulse Ox O2 Delivery O2 Flow Rate FiO2 11/06/17 22:05 98.2 88 16 122/88 90 Room Air Impression: Primary Impression: Acute low back pain Additional Impression: Arthritis Condition: Improved Disposition: HOME OR SELF-CARE Referrals: MANAS RAMIREZ MD (PCP) New Scripts Pregabalin (LYRICA) 25 Mg Cap 25 MG FT TID for 14 Days, #42 CAP Prov: ZIYAD CANNON DO 11/07/17 Tramadol Hcl (TRAMADOL HCL) 50 Mg Tablet 50 MG PO Q6H Y for PAIN, #20 TAB 0 Refills Prov: ZIYAD CANNON DO 11/07/17 Patient Instructions: Arthritis (ED), Pregabalin (By mouth), Tramadol (By mouth ) Additional Instructions: You may take 1 tablet of tramadol every 6-8 hours as needed for severe pain. Please do not take more than 3 g of Tylenol daily due to possible side effects of the liver. Please follow-up with her family doctor within the next 3 days. Please return promptly if you develop bowel or bladder incontinence, fevers, weakness of the lower extremities. Problem Qualifiers ZIYAD CANNON DO Nov 06, 2017 22:05
[2017-11-06] MEDS ORDERED: ACETAMINOPHEN 325 MG TAB PO ONE (22:55)
[2017-11-06] MEDS ORDERED: ACETAMINOPHEN 500 MG TAB PO ONE (23:10)
[2017-11-06] MEDS ORDERED: MORPHINE 10 MG/ML SYR IM PRN (23:20)
--- NOTE | 2017-11-06 23:33 | RADIOLOGY IMAGING REPORT ---
FACILITY: PATIENT NAME: Corky Ramos : 1935 MR: [id number] V: [id number] EXAM DATE: ORDERING PHYSICIAN: ZIYAD CANNON TECHNOLOGIST: Location: [facility] Patient: Corky Ramos : 1935 Visit/Account:[id number] Date of Sevice: 11/06/2017 HIPS BILATERAL COMPARISONS: None. ADDITIONAL PERTINENT HISTORY: Bilateral lower back and hip pain with movement. FINDINGS: Osseous structures: Minimal subchondral sclerosis and osteophyte formation involving the superior lat eral aspects of both hip joints. Spondylitic change involving the lower lumbar spine. Joint spaces: Minimal joint space narrowing involving the superior lateral aspects of both hip joints . Surrounding soft tissues: Negative. IMPRESSION: 1. Osteoarthritic changes about both hips. 2. Spondylitic change involving the lower lumbar spine. 3. No acute appearing bony abnormalities. Report Dictated By: Manny Boyce MD at 11/06/2017 11:27 PM Report E-Signed By: Manny Boyce MD at 11/06/2017 11:29 PM WSN:[id number]
[2017-11-07] VITALS: BP 122/84
[2017-11-07] MEDS ORDERED: TRAM-420 PO (00:02)
[2017-11-07] MEDS ORDERED: PREG25 FT (00:02)
[2017-11-07] MEDS ORDERED: ACET-2146 PO (11:26)
[2017-11-07] MEDS ORDERED: METH4TAB66 PO (11:26)
== END 2017-11-07 00:19 | disposition home or self-care (01) ==
LOC: ER 22:07
DX: M54.5 Low back pain (principal); M19.90 Unspecified osteoarthritis, unspecified site
CPT/HCPCS: 73522; 99283; J2270

== ENCOUNTER → 2017-11-26 | Outpatient (CLI) | payer MEDICARE, BC ==
[2017-11-04 11:11] VITALS: BMI 24.9
[~2017-11-26] MED LIST changes: +DICL100G39 TOP; +LIDO700A19 TD; +METH4TAB66 PO; +PREG25 FT; +TAMS0.4C70 PO
--- NOTE | 2017-11-26 14:50 | RADIOLOGY IMAGING REPORT ---
[place] [facility] [place] Corky [place] : 1935 MR: [id number] V: [id number] EXAM DATE: ORDERING PHYSICIAN: KRAIG CASTLE TECHNOLOGIST: Location: [facility] [place] Patient: Corky Ramos : 1935 Visit/Account:[id number] Date of Sevice: 11/26/2017 Exam: US SINGLE ORGAN Indication: , Incomplete bladder emptying. History of left nephrectomy and history of bladder cancer Comparison: CT 11/03/2017 Findings: The bladder has a normal smooth walled appearance. No discrete mass is identified. Right ureteral jet is identified. Prevoid volume is 593 mL, post void volume is 476 mL Stable appearing cysts are identified off the inferior aspect of the right kidney, the largest measur es 7.9 cm IMPRESSION: 1. Significant post void residual of 476 mL Report Dictated By: Brenden Sharma at 11/26/2017 2:42 PM Report E-Signed By: Brenden Sharma at 11/26/2017 2:47 PM WSN:[email or web address]
== END ==
LOC: US 03:11
DX: N28.1 Cyst of kidney, acquired (principal); R33.9 Retention of urine, unspecified
CPT/HCPCS: 36415; 84153

== ENCOUNTER → 2017-12-26 | Outpatient (CLI) | payer MEDICARE, BC ==
[2017-11-04 11:11] VITALS: BMI 24.9
[~2017-12-26] MED LIST changes: -AMLO2.5T74 PO; +AMLO2.5T76 PO
== END ==
LOC: LAB 08:16
DX: N30.01 Acute cystitis with hematuria (principal)
CPT/HCPCS: 81001; 87088

== ENCOUNTER 2018-01-11 09:49 | Inpatient (IN) | payer MEDICARE, BC ==
[~2018-01-11] VITALS: Ht 170.2 cm; Wt 76.0 kg
[~2018-01-11 09:49] MED LIST changes: -HYOS-22 PO; -LORA-1455 PO; -LORA2VIA28 IVP; -MORP100S32 PO; -MORP2CAR IVP; -OLAN5TAB PO
[2018-01-11] MEDS ORDERED: NS(*) 0.9% 1000 ML BAG 1,000 ML IV ONE (10:25)
[2018-01-11] MEDS ORDERED: cefTRIAXone 1 GM VIAL IVP ONE (10:30)
[2018-01-11 11:03] LABS: PLATELET COUNT, AUTOMATED 156 K/uL (150-450)
[2018-01-11] MEDS ORDERED: NS(*) 0.9% 100 ML BAG 100 ML ONE (11:33)
--- NOTE | 2018-01-11 12:58 | RADIOLOGY IMAGING REPORT ---
FACILITY: [facility] - [place] PATIENT NAME: Corky Ramos : 1935 MR: [id number] V: [id number] EXAM DATE: ORDERING PHYSICIAN: DIONICIO REEVES TECHNOLOGIST: Location: [facility] Patient: Corky Ramos : 1935 Visit/Account:[id number] Date of Sevice: 01/11/2018 CHEST SINGLE AP Indication: Fever and confusion. Comparison: October 09, 2016 Findings: Left chest wall pacer device is unchanged. Heart size within normal limits. Calcification within the aortic knob. There is no focal infiltrate or lobar consolidation. No pneumothorax or pleural effusion. IMPRESSION: 1. No acute cardiopulmonary process. Report Dictated By: Wilder Moscoso MD at 01/11/2018 12:53 PM Report E-Signed By: Wilder Moscoso MD at 01/11/2018 12:54 PM WSN:[email or web address]
--- NOTE | 2018-01-11 15:04 | RADIOLOGY IMAGING REPORT ---
FACILITY: [facility] PATIENT NAME: Corky Ramos : 1935 MR: [id number] V: [id number] EXAM DATE: ORDERING PHYSICIAN: DIONICIO REEVES TECHNOLOGIST: Location: [facility] - [place] Patient: Corky Ramos : 1935 Visit/Account:[id number] Date of Sevice: 01/11/2018 CT Head without contrast Indication: Confusion and fever. Comparison: None available Technique: Axial CT images were obtained through the brain from the skull base to the vertex without administration of IV contrast. Reformatted coronal and sagittal images were also obtained. One of the following dose optimization techniques was utilized in the performance of this exam: autom ated exposure control; adjustment of the mA and/or kV according to the patient's size; or use of an i terative reconstruction technique. Specific details can be referenced in the facility's radiology CT exam operational policy. Findings: No evidence of mass, mass effect, or midline shift. No acute intracranial hemorrhage or acute territorial infarction. No extra-axial fluid collection or hydrocephalus. Age-related cerebral atrophy. Periventricular whi te matter ischemic changes consistent small vessel disease. Avendaño/white matter differentiation appear s normal. Bony structures show no fractures or lesions. Small focal area of mucosal thickening seen in the posterior left maxillary sinus which may represent a small cyst/polyp. The remaining sinuses and mastoids visualized are clear. IMPRESSION: 1. Senescent changes without acute abnormality. 2. Mild left maxillary sinus disease. Report Dictated By: Manuel Shaikh at 01/11/2018 2:57 PM Report E-Signed By: Manuel Shaikh at 01/11/2018 3:01 PM WSN:[email or web address]
--- NOTE | 2018-01-11 15:23 | RADIOLOGY IMAGING REPORT ---
FACILITY: [facility] PATIENT NAME: Corky Ramos : 1935 MR: [id number] V: [id number] EXAM DATE: ORDERING PHYSICIAN: DIONICIO REEVES TECHNOLOGIST: Location: [facility] - [place] Patient: Corky Ramos : 1935 Visit/Account:[id number] Date of Sevice: 01/11/2018 CT abdomen and pelvis without contrast Indication: Fever and confusion. Comparison: 11/03/2017. Technique: Axial CT images are obtained through the abdomen and pelvis. Reformatted coronal and sagit lidya images were reviewed. IV contrast was not administered. One of the following dose optimization techniques was utilized in the performance of this exam: auto mated exposure control; adjustment of the mA and/or kV according to the patient's size; or use of an iterative reconstruction technique. Specific details can be referenced in the facility's radiology C T exam operational policy. Findings: Lower lung casas: Mild dependent atelectasis, otherwise clear. Evaluation of the solid organs of the abdomen is limited without IV contrast. Liver: No focal parenchymal abnormality of the liver. Biliary: Tiny gallstone is again seen in the gallbladder without other gallbladder or biliary abnorma lity. Pancreas: No focal abnormality. Spleen: Normal appearance. Adrenal glands: Left adrenal gland does show stable 1.2 cm hypodense nodule, likely a benign adenoma. Right adrenal gland is normal. Kidneys / retroperitoneum: Status post left nephrectomy. In the renal bed there is a small calcified nodule measuring 1.8 cm which is stable. The right kidney shows no stone or hydronephrosis. There is a large inferior right renal cyst measuring 8.6 cm which is stable. There is a smaller cyst seen superiorly and a couple hyperdense nodules, likely hyperdense cyst, with the largest measuring 2.6 cm . The appearance of the right kidney is unchanged. Bowel / peritoneum / mesenteries: There are are a few diverticula seen along the sigmoid colon withou t pericolonic inflammation. Moderate stool seen throughout colon and rectosigmoid colon colon shows no other focal abnormality. The appendix is normal. Small bowel shows no focal normality or obstruc tion. The stomach is unremarkable. No free air, free fluid, fluid collections or areas of inflammation. Small umbilical hernia containi ng fat. Lymph node assessment: No pathologic adenopathy identified. Pelvic structures: Urinary bladder contains a Alan catheter with small amount of air without othe r focal abnormality. Remaining pelvic structures visualized within normal limits. Vessels: Mild atherosclerotic calcifications seen throughout a nonaneurysmal abdominal aorta and bran ches. Musculoskeletal / Body wall: No acute or aggressive osseous abnormality. Degenerative changes spine. At the L4-5 level there is worsening endplate changes with mild irregularity compared to the previo us exam. Possible soft tissue density along the anterior and anterior left lateral aspect. A left l ateral disc bulge which appears similar. IMPRESSION: 1. No acute intra-abdominal abnormality identified. 2. Sigmoid diverticulosis without radiographic indication diverticulitis. Moderate stool seen throu ghout colon. 3. There is worsening endplate changes at the L4-5 level without discrete soft tissue density. This may represent early discitis/osteomyelitis. 4. Other stable chronic findings as above. I called report to DIONICIO REEVES at 01/11/2018 3:17 PM. Report Dictated By: Manuel Shaikh at 01/11/2018 3:01 PM Report E-Signed By: Manuel Shaikh at 01/11/2018 3:19 PM WSN:[email or web address]
--- NOTE | 2018-01-11 15:24 | RADIOLOGY IMAGING REPORT ---
FACILITY: [facility] PATIENT NAME: Corky Ramos : 1935 MR: [id number] V: [id number] EXAM DATE: ORDERING PHYSICIAN: DIONICIO REEVES TECHNOLOGIST: Location: [facility] - [place] Patient: Corky Ramos : 1935 Visit/Account:[id number] Date of Sevice: 01/11/2018 CT lumbar spine Indication: Fever and confusion. Comparison: 11/03/2017. Technique: Axial CT imaging of the lumbar spine was performed. 2-D sagittal and coronal CT reformats were also obtained.One of the following dose optimization techniques was utilized in the performance of this exam: automated exposure control; adjustment of the mA and/or kV according to the patient's size; or use of an iterative reconstruction technique. Specific details can be referenced in the [facility]'s radiology CT exam operational policy. Findings: The vertebral bodies are aligned. No compression fractures or aggressive bony lesions. There is a s table bone island in the L1 vertebral body. There is mild diffuse degenerative changes more moderate degenerative change seen in the lower lumbar spine which include disc space narrowing, endplate brown ges, osteophytes and facet arthropathy. However, the L4-5 level there is worsening irregular endplat e changes from previous examination. There is still a small lateral disc bulge on the left side appe ars similar. However compared to the previous exam there may be slight increased soft tissue density anterior and left anterior lateral. There is broad-based disc bulge seen diffusely with at least mi ld to moderate narrowing of the spinal canal due to soft tissue changes at the L4-5 level and mild at the L5, L3 and L2 levels. There is some mild encroachment to the neural foramina more so at the L4- 5 level. Degenerative changes are stable. Soft tissues again show a stable left adrenal gland nodule, left nephrectomy changes with a stable 1. 8 cm calcified nodule in the renal fossa, right renal cysts. Impression: 1. No acute osseous or acute alignment abnormality of the lumbar spine. 2. The L4-5 level does show worsening irregular endplate changes with probable mild soft tissue prom inence in the anterior and inferior left lateral aspects. This may be secondary to osteomyelitis/dis citis. 3. Other chronic stable findings as above. Report Dictated By: Manuel Shaikh at 01/11/2018 3:11 PM Report E-Signed By: Manuel Shaikh at 01/11/2018 3:20 PM WSN:[id number]
[2018-01-11] MEDS ORDERED: VANCOMYCIN 1 GM ADDVIAL 1 GM in NS(*) 0.9% 250 ML ADDVAN BAG 250 ML IVPB ONE (16:05)
[2018-01-11] MEDS ORDERED: IOPAMIDOL 76% 75 ML INFUS BTL 75 ML ONE (16:45)
[2018-01-11] MEDS ORDERED: ACETAMINOPHEN 500 MG TAB PO ONE (18:55)
--- NOTE | 2018-01-11 19:15 | ER Report ---
History and Physical Time Seen By MD: 10:00 Hx. of Stated Complaint: increased weakness and confusion, being treated for UTI and not compliant with meds per family. HPI/ROS Baseline dementia and also with frequent UTIs. Family brought patient to ED for fever and hallucinations this morning. He denies cough or chest pain. No SOB. He complains of back pain and intermittent abdominal pain. The family states that he recently had a urinary tract infection and was treated with ciprofloxacin given by his urologist Dr. Danielle. The patient's family states that he has only taken half the dose. They were worried his back pain and fever were due to an untreated UTI. Allergies: Coded Allergies: vancomycin (Verified Allergy, Severe, ITCHING, RASH, 01/11/18) hydrocodone (Verified Allergy, Mild, NAUSEA AND VOMITING , 01/11/18) Penicillins (Verified Allergy, Unknown, 01/11/18) phenazopyridine (Verified Allergy, Unknown, NAUSEA AND VOMITING, 01/11/18) adhesive tape (Verified Adverse Reaction, Mild, 01/11/18) cyclobenzaprine (Verified Adverse Reaction, Unknown, Delirium, 01/11/18) Home Meds Active Scripts Potassium Chloride (Potassium Chloride) 20 Meq Tablet.er, 10 MEQ PO DAILY for 90 Days, #90 TAB 4 Refills Prov:MANAS RAMIREZ MD 12/24/17 Furosemide (FUROSEMIDE) 40 Mg Tablet, 0.5 TAB PO DAILY, #90 TAB 3 Refills Prov:MANAS RAMIREZ MD 12/24/17 Lidocaine (Lidocaine) 5 % Adh..patch, 1 PATCH TD Q12H for 30 Days, #30 PATCH Prov:MANAS RAMIREZ MD 11/13/17 Diclofenac Sodium 1% Gel (VOLTAREN 1% GEL) 100 Gm Gel..gram., 2 GM TOP TID for 30 Days, #1 TUBE Prov:MANAS RAMIREZ MD 11/13/17 Acetaminophen 500 Mg Tab (ACETAMINOPHEN EXTRA STRENGTH) 500 Mg Tablet, 1000 MG PO Q8H for 90 Days, TAB Prov:MANAS RAMIREZ MD 11/07/17 Atorvastatin Calcium (ATORVASTATIN CALCIUM) 10 Mg Tablet, 1 TAB PO QDAY for 90 Days, #90 TAB 4 Refills Prov:MANAS RAMIREZ MD 08/28/17 Levothyroxine Sodium (LEVOTHYROXINE SODIUM) 50 Mcg Tablet, 1 TAB PO QDAY, #90 TAB 4 Refills Prov:MANAS RAMIREZ MD 07/10/17 Allopurinol (ZYLOPRIM) 300 Mg Tablet, 1 TAB PO QDAY, #90 TAB 4 Refills Prov:MANAS RAMIREZ MD 06/08/17 Metoprolol Succinate (METOPROLOL SUCCINATE) 100 Mg Tab.er.24h, 1 TAB PO QDAY, #90 TAB 4 Refills Prov:MANAS RAMIREZ MD 04/11/17 Reported Medications Tamsulosin Hcl (TAMSULOSIN HCL) 0.4 Mg Cap.er.24h, 1 CAP PO HS, CAP 11/27/17 Aspirin (ASPIR 81) 81 Mg Tablet.dr, 1 TAB PO QDAY, TAB 04/05/17 Hx Smoking: No Smoking Status: Never Smoker Exposure to Second Hand Smoke?: No Hx Substance Use Disorder: No Hx Alcohol Use: Yes (RARE) Constitutional Vital Sign - Last 24 Hours 01/11/18 01/11/18 01/11/18 01/11/18 09:49 09:58 10:04 10:06 Temp 101.7 Pulse ??? 94 86 Resp 17 16 B/P (MAP) 96/73 (81) 96/73 Pulse Ox 91 91 O2 Delivery Room Air 01/11/18 01/11/18 01/11/18 01/11/18 10:15 10:19 10:20 10:30 Pulse 78 Resp 11 B/P (MAP) 91/75 (80) 91/63 (72) 92/63 (73) Pulse Ox 93 01/11/18 01/11/18 01/11/18 01/11/18 10:34 10:45 10:49 11:00 Pulse 78 73 Resp 33 22 B/P (MAP) 90/64 (73) 100/70 (80) Pulse Ox 94 95 01/11/18 01/11/18 01/11/18 01/11/18 11:04 11:15 11:19 11:30 Pulse 75 70 Resp 11 22 B/P (MAP) 98/65 (76) 91/65 (74) Pulse Ox 95 01/11/18 01/11/18 01/11/18 01/11/18 11:34 11:39 11:45 11:54 Pulse 71 70 70 Resp 29 27 19 B/P (MAP) 89/68 (75) 01/11/18 01/11/18 01/11/18 01/11/18 12:00 12:09 12:15 12:24 Pulse 71 71 Resp 28 22 B/P (MAP) 96/74 (81) 105/65 (78) 01/11/18 01/11/18 01/11/18 01/11/18 12:30 12:39 12:45 12:50 Temp 99.8 Pulse 80 72 Resp 27 30 B/P (MAP) 97/61 (73) 101/73 (82) 01/11/18 01/11/18 01/11/18 01/11/18 13:00 13:05 13:15 13:20 Pulse 70 70 Resp 20 26 B/P (MAP) 105/58 (74) 93/59 (70) 01/11/18 01/11/18 01/11/18 01/11/18 13:30 13:35 13:45 13:50 Pulse 71 69 Resp 20 25 B/P (MAP) 100/68 (79) 94/63 (73) 01/11/18 01/11/18 01/11/18 01/11/18 14:00 14:05 14:30 14:35 Pulse 70 69 Resp 15 18 B/P (MAP) 93/64 (74) 100/63 (75) Pulse Ox 97 95 O2 Delivery Nasal Cannula Nasal Cannula O2 Flow Rate 2 2 01/11/18 01/11/18 01/11/18 01/11/18 14:40 14:45 14:55 15:00 Pulse 70 69 Resp 17 11 B/P (MAP) 100/64 (76) 98/62 (74) Pulse Ox 96 95 01/11/18 01/11/18 01/11/18 01/11/18 15:10 15:15 15:25 15:30 Pulse 75 70 Resp 9 10 B/P (MAP) 96/64 (75) 105/64 (78) Pulse Ox 96 97 01/11/18 01/11/18 15:40 15:45 Pulse 70 Resp 10 B/P (MAP) 101/68 (79) Pulse Ox 97 O2 Delivery Nasal Cannula O2 Flow Rate 2 Medical Decision Making Data Points Result Diagram: 01/11/18 1000 01/11/18 0000 Laboratory Hematology Test 01/11/18 00:00 01/11/18 10:00 01/11/18 10:49 01/11/18 11:05 Erythrocyte Sedimentation Rate 21 mm/HOUR (0-20) Sodium Level 137 mmol/L (137-145) Potassium Level 3.8 mmol/L (3.5-5.0) Chloride Level 106 mmol/L (98-107) Carbon Dioxide Level 19 mmol/L (22-30) Blood Urea Nitrogen 21 mg/dl (9-21) Creatinine 1.20 mg/dl (0.66-1.25) Glomerular Filtration Rate Calc 58.0 Random Glucose 147 mg/dl (75-110) Calcium Level 8.9 mg/dl (8.4-10.2) Total Bilirubin 1.2 mg/dl (0.2-1.3) Aspartate Amino Transf (AST/SGOT) 23 U/L (0-35) Alanine Aminotransferase (ALT/SGPT) 20 U/L (0-56) Alkaline Phosphatase 57 U/L (0-126) C-Reactive Protein 5.0 mg/dl (<1.0) Total Protein 7.3 g/dl (6.3-8.2) Albumin 3.9 g/dl (3.5-5.0) Red Blood Count 4.22 M/uL (4.00-5.60) Mean Corpuscular Volume 95.9 fL (80.0-96.0) Mean Corpuscular Hemoglobin 32.4 pg (26.0-33.0) Mean Corpuscular Hemoglobin Concent 33.8 g/dL (32.0-36.0) Red Cell Distribution Width 14.9 % (11.5-14.5) Mean Platelet Volume 8.2 fL (7.2-11.1) Neutrophils (%) (Auto) 89.1 % (39.4-72.5) Lymphocytes (%) (Auto) 3.7 % (17.6-49.6) Monocytes (%) (Auto) 6.7 % (4.1-12.4) Eosinophils (%) (Auto) 0.1 % (0.4-6.7) Basophils (%) (Auto) 0.4 % (0.3-1.4) Nucleated RBC Relative Count (auto) 0.0 /100WBC Neutrophils # (Auto) 14.0 K/uL (2.0-7.4) Lymphocytes # (Auto) 0.6 K/uL (1.3-3.6) Monocytes # (Auto) 1.0 K/uL (0.3-1.0) Eosinophils # (Auto) 0.0 K/uL (0.0-0.5) Basophils # (Auto) 0.1 K/uL (0.0-0.1) Nucleated RBC Absolute Count (auto) 0.00 K/uL Peripheral Blood Smear No Y/N Lactate 1.2 mmol/L (0.7-2.1) Urine Color Yellow Urine Clarity Clear Urine pH 5.0 pH (4.8-9.5) Urine Specific [place] 1.015 Urine Protein 30 mg/dL (NEGATIVE) Urine Glucose (UA) Negative mg/dL (NEGATIVE) Urine Ketones Negative mg/dL (NEGATIVE) Urine Blood Moderate (NEGATIVE) Urine Nitrite Negative (NEGATIVE) Urine Bilirubin Negative (NEGATIVE) Urine Urobilinogen Negative mg/dL (0.2-1.9) Urine Leukocyte Esterase Negative (NEGATIVE) Urine RBC 86 /HPF (0-2/HPF) Urine WBC 6 /HPF (0-5/HPF) Urine Squamous Epithelial Cells None /LPF (NONE-FEW) Urine Bacteria Negative /HPF (NONE-FEW) Urine Mucus None /HPF (NONE-FEW) Test 01/11/18 13:43 Influenza Virus Type A (PCR) Negative (NEGATIVE) Influenza Virus Type B (PCR) Negative (NEGATIVE) Chemistry Test 01/11/18 00:00 01/11/18 10:00 01/11/18 10:49 01/11/18 11:05 Erythrocyte Sedimentation Rate 21 mm/HOUR (0-20) Glomerular Filtration Rate Calc 58.0 Calcium Level 8.9 mg/dl (8.4-10.2) Total Bilirubin 1.2 mg/dl (0.2-1.3) Aspartate Amino Transf (AST/SGOT) 23 U/L (0-35) Alanine Aminotransferase (ALT/SGPT) 20 U/L (0-56) Alkaline Phosphatase 57 U/L (0-126) C-Reactive Protein 5.0 mg/dl (<1.0) Total Protein 7.3 g/dl (6.3-8.2) Albumin 3.9 g/dl (3.5-5.0) White Blood Count 15.7 k/uL (4.5-11.0) Red Blood Count 4.22 M/uL (4.00-5.60) Hemoglobin 13.7 g/dL (14.0-18.0) Hematocrit 40.5 % (42.0-52.0) Mean Corpuscular Volume 95.9 fL (80.0-96.0) Mean Corpuscular Hemoglobin 32.4 pg (26.0-33.0) Mean Corpuscular Hemoglobin Concent 33.8 g/dL (32.0-36.0) Red Cell Distribution Width 14.9 % (11.5-14.5) Platelet Count 156 K/uL (150-450) Mean Platelet Volume 8.2 fL (7.2-11.1) Neutrophils (%) (Auto) 89.1 % (39.4-72.5) Lymphocytes (%) (Auto) 3.7 % (17.6-49.6) Monocytes (%) (Auto) 6.7 % (4.1-12.4) Eosinophils (%) (Auto) 0.1 % (0.4-6.7) Basophils (%) (Auto) 0.4 % (0.3-1.4) Nucleated RBC Relative Count (auto) 0.0 /100WBC Neutrophils # (Auto) 14.0 K/uL (2.0-7.4) Lymphocytes # (Auto) 0.6 K/uL (1.3-3.6) Monocytes # (Auto) 1.0 K/uL (0.3-1.0) Eosinophils # (Auto) 0.0 K/uL (0.0-0.5) Basophils # (Auto) 0.1 K/uL (0.0-0.1) Nucleated RBC Absolute Count (auto) 0.00 K/uL Peripheral Blood Smear No Y/N Lactate 1.2 mmol/L (0.7-2.1) Urine Color Yellow Urine Clarity Clear Urine pH 5.0 pH (4.8-9.5) Urine Specific [place] 1.015 Urine Protein 30 mg/dL (NEGATIVE) Urine Glucose (UA) Negative mg/dL (NEGATIVE) Urine Ketones Negative mg/dL (NEGATIVE) Urine Blood Moderate (NEGATIVE) Urine Nitrite Negative (NEGATIVE) Urine Bilirubin Negative (NEGATIVE) Urine Urobilinogen Negative mg/dL (0.2-1.9) Urine Leukocyte Esterase Negative (NEGATIVE) Urine RBC 86 /HPF (0-2/HPF) Urine WBC 6 /HPF (0-5/HPF) Urine Squamous Epithelial Cells None /LPF (NONE-FEW) Urine Bacteria Negative /HPF (NONE-FEW) Urine Mucus None /HPF (NONE-FEW) Test 01/11/18 13:43 Influenza Virus Type A (PCR) Negative (NEGATIVE) Influenza Virus Type B (PCR) Negative (NEGATIVE) Urinalysis Test 01/11/18 11:05 Urine Color Yellow Urine Clarity Clear Urine pH 5.0 pH (4.8-9.5) Urine Specific [place] 1.015 Urine Protein 30 mg/dL (NEGATIVE) Urine Glucose (UA) Negative mg/dL (NEGATIVE) Urine Ketones Negative mg/dL (NEGATIVE) Urine Blood Moderate (NEGATIVE) Urine Nitrite Negative (NEGATIVE) Urine Bilirubin Negative (NEGATIVE) Urine Urobilinogen Negative mg/dL (0.2-1.9) Urine Leukocyte Esterase Negative (NEGATIVE) Urine RBC 86 /HPF (0-2/HPF) Urine WBC 6 /HPF (0-5/HPF) Urine Squamous Epithelial Cells None /LPF (NONE-FEW) Urine Bacteria Negative /HPF (NONE-FEW) Urine Mucus None /HPF (NONE-FEW) ED Course/Re-evaluation ED Course On PE, it is noted that he has focal back pain in his l-spine. An initial noncontrast CT scan was obtained and shows evidence of an osteomyelitis or discitis at L4/L5. He could not give an MRI to determine whether or not he has an epidural abscess. Suspicion is low. Can not get MRI due to pacemaker. CT scan with IV contrast obtained, and shows no evidence of abscess. He has been given Vancomycin and Rocephin. Plan will be to admit for abx, likely PICC placement and long-term antibiotics Decision to Disposition Date: Jan 11, 2018 Decision to Disposition Time: 19:14 Depart Departure Latest Vital Signs Vital Signs Date Time Temp Pulse Resp B/P (MAP) Pulse Ox O2 Delivery O2 Flow Rate FiO2 01/11/18 15:45 101/68 (79) 01/11/18 15:40 70 10 97 Nasal Cannula 2 01/11/18 12:45 99.8 Core Temperature (Celsius): ??? Impression: Primary Impression: Discitis Condition: Improved Disposition: Admitted from ER Referrals: MANAS RAMIREZ MD (PCP) Problem Qualifiers Primary Impression: Discitis Spinal region: lumbar Qualified Codes: M46.46 - Discitis, unspecified, lumbar region DIONICIO REEVES MD Jan 11, 2018 19:15
--- NOTE | 2018-01-11 19:32 | RADIOLOGY IMAGING REPORT ---
FACILITY: [facility] - [place], [place] PATIENT NAME: Corky Ramos : 1935 MR: [id number] V: [id number] EXAM DATE: ORDERING PHYSICIAN: DIONICIO REEVES TECHNOLOGIST: Location: [facility] - [place] Patient: Corky aRmos : 1935 Visit/Account:[id number] Date of Sevice: 01/11/2018 EXAMINATION: CT abdomen with IV contrast CT pelvis with IV contrast CT lumbar spine with IV contrast (reformatted) HISTORY: Fever. Abdominal pain. COMPARISON: CT of the abdomen and pelvis and lumbar spine without contrast from the same day. TECHNIQUE: Axial images were taken through the abdomen and pelvis with intravenous contrast. Sagitt al and coronal reformatted images are also submitted. Source data was reformatted at thin slice collimation and small field of view over the lumbar spine. Stored on PACS are reformatted axial, sagittal and coronal lumbar spine series. CONTRAST: 75 mL of IV Isovue-370 One of the following dose optimization techniques was utilized in the performance of this exam: Autom ated exposure control; adjustment of the mA and/or kV according to the patient's size; or use of an i terative reconstruction technique. Specific details can be referenced in the facility's radiology C T exam operational policy. FINDINGS: Liver/biliary: Subcentimeter hypoattenuating focus in the left lobe of the liver, too small to charac terize. Tiny calculus in the gallbladder. Pancreas: Negative. Spleen: Negative. Adrenal glands: 1.2 cm left adrenal nodule. Kidneys: Status post left nephrectomy. A 1.8 cm partially calcified nodule at the left renal bed. Mul tiple cysts in the right kidney, the largest measuring 8.7 cm. A 2.7 cm hyperdense cyst in the right kidney. A 1.4 cm probable hyperdense cyst in the right kidney. Pelvic structures: Alan catheter in the urinary bladder. Air within the urinary bladder. Bowel: Mild colonic diverticulosis without evidence of diverticulitis. Normal appendix. Peritoneum/retroperitoneum/mesenteries: Negative. Vessels: Aortic valve replacement. Calcified plaque along the aorta and iliac arteries. Mild ectasia of the left common iliac artery. Ectasia of the celiac trunk, measuring 1.5 cm in diameter. Mild ecta rahul of the proximal superior mesenteric artery which measures 1.1 cm in diameter. 2 right renal arter ies. Musculoskeletal/body wall: Endplate irregularity and sclerosis at L4-5 with mild stranding in the ant erior paraspinal fat along the L4-5 disc. No evidence of paraspinal abscess. Lymph node assessment: Negative. Lower chest: Pacer leads in the right atrium and right ventricle. Subsegmental atelectasis at the magalys g bases. CT LUMBAR SPINE: Alignment: Mild left convex curvature of the lumbar spine. Vertebral bodies: Erosions of the L4-5 endplates. Increased attenuation in the marrow along the L4-5 endplates. Posterior elements: Multilevel facet hypertrophy. Disc Spaces: Erosions of the L4-5 endplates, new compared with previous CT on 11/03/2017. Severe disc s pace narrowing at L5-S1 with vacuum disc phenomenon. Mild disc degenerative changes at other levels i n the lumbar spine. Soft tissues: There is stranding in the anterior paraspinal soft tissues along the L4-5 disc. No para spinal abscess. No definite evidence of epidural abscess. 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 There are inflammatory changes in the anterior paraspinal soft tissue s at L4-5. No abscess in the anterior paraspinal soft tissues. No definite evidence of epidural absce ss. Multiple chronic findings in the abdomen and pelvis as detailed in the body of report. These findings were discussed with DIONICIO REEVES at 01/11/2018 7:06 PM. Report Dictated By: Leonid Alonzo MD at 01/11/2018 6:55 PM Report E-Signed By: Leonid Alonzo MD at 01/11/2018 7:28 PM WSN:[id number]
--- NOTE | 2018-01-11 19:32 | RADIOLOGY IMAGING REPORT ---
FACILITY: [facility] - [place] PATIENT NAME: Corky Ramos : 1935 MR: [id number] V: [id number] EXAM DATE: ORDERING PHYSICIAN: DIONICIO REEVES TECHNOLOGIST: [place] [facility] [place]: Corky Ramos : 1935 Visit/Account:[id number] Date of Sevice: 01/11/2018 EXAMINATION: CT abdomen with IV contrast CT pelvis with IV contrast CT lumbar spine with IV contrast (reformatted) HISTORY: Fever. Abdominal pain. COMPARISON: CT of the abdomen and pelvis and lumbar spine without contrast from the same day. TECHNIQUE: Axial images were taken through the abdomen and pelvis with intravenous contrast. Sagitt al and coronal reformatted images are also submitted. Source data was reformatted at thin slice collimation and small field of view over the lumbar spine. Stored on PACS are reformatted axial, sagittal and coronal lumbar spine series. CONTRAST: 75 mL of IV Isovue-370 One of the following dose optimization techniques was utilized in the performance of this exam: Autom ated exposure control; adjustment of the mA and/or kV according to the patient's size; or use of an i terative reconstruction technique. Specific details can be referenced in the facility's radiology C T exam operational policy. FINDINGS: Liver/biliary: Subcentimeter hypoattenuating focus in the left lobe of the liver, too small to charac terize. Tiny calculus in the gallbladder. Pancreas: Negative. Spleen: Negative. Adrenal glands: 1.2 cm left adrenal nodule. Kidneys: Status post left nephrectomy. A 1.8 cm partially calcified nodule at the left renal bed. Mul tiple cysts in the right kidney, the largest measuring 8.7 cm. A 2.7 cm hyperdense cyst in the right kidney. A 1.4 cm probable hyperdense cyst in the right kidney. Pelvic structures: Alan catheter in the urinary bladder. Air within the urinary bladder. Bowel: Mild colonic diverticulosis without evidence of diverticulitis. Normal appendix. Peritoneum/retroperitoneum/mesenteries: Negative. Vessels: Aortic valve replacement. Calcified plaque along the aorta and iliac arteries. Mild ectasia of the left common iliac artery. Ectasia of the celiac trunk, measuring 1.5 cm in diameter. Mild ecta rahul of the proximal superior mesenteric artery which measures 1.1 cm in diameter. 2 right renal arter ies. Musculoskeletal/body wall: Endplate irregularity and sclerosis at L4-5 with mild stranding in the ant erior paraspinal fat along the L4-5 disc. No evidence of paraspinal abscess. Lymph node assessment: Negative. Lower chest: Pacer leads in the right atrium and right ventricle. Subsegmental atelectasis at the magalys g bases. CT LUMBAR SPINE: Alignment: Mild left convex curvature of the lumbar spine. Vertebral bodies: Erosions of the L4-5 endplates. Increased attenuation in the marrow along the L4-5 endplates. Posterior elements: Multilevel facet hypertrophy. Disc Spaces: Erosions of the L4-5 endplates, new compared with previous CT on 11/03/2017. Severe disc s pace narrowing at L5-S1 with vacuum disc phenomenon. Mild disc degenerative changes at other levels i n the lumbar spine. Soft tissues: There is stranding in the anterior paraspinal soft tissues along the L4-5 disc. No para spinal abscess. No definite evidence of epidural abscess. 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 There are inflammatory changes in the anterior paraspinal soft tissue s at L4-5. No abscess in the anterior paraspinal soft tissues. No definite evidence of epidural absce ss. Multiple chronic findings in the abdomen and pelvis as detailed in the body of report. These findings were discussed with DIONICIO REEVES at 01/11/2018 7:06 PM. Report Dictated By: Leonid Alonzo MD at 01/11/2018 6:55 PM Report E-Signed By: Leonid Alonzo MD at 01/11/2018 7:28 PM WSN:[id number]
[2018-01-11 20:46] VITALS: BP 136/83
[2018-01-11] MEDS ORDERED: INFLUENZA VIRUS VAC 0.5ML SYR IM ONLY ONE (22:25)
--- NOTE | 2018-01-11 22:50 | History & Physical ---
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 He was admitted for low back pain approximately 2 months ago. Work up was essentially negative at that time. He was treated conservatively and had mild improvement. His pain began to increase, but he was still able to ambulate and do most of his ADLs. Over past several days-weeks he has developed increasing urinary incontinence along with his increasing back pain (no fecal incontinence). He has been treated by Urology for possible UTI without much improvement. He has also developed episodes of confusion and possible hallucinations. He has not appreciated any fever/chills. He has now started having much more difficulty ambulating due to the pain. He denies any focal weakness/numbness/tingling. Early today he was unable to ambulate and brought by EMS to the [facility] ER. He was found to have evidence of L4-5 discitis/possible osteomyelitis. He was recommended for admission. History Problems: (1) HTN (hypertension) Status: Chronic (2) Hypothyroid Status: Chronic (3) Dementia Status: Chronic (4) H/O partial cystectomy Status: Resolved (5) Aortic valve replaced Status: Chronic Comment: Bovine valve (6) H/O unilateral nephrectomy Status: Resolved (7) Sepsis Status: Resolved (8) Carcinoma of bladder Status: Chronic Home Meds Active Scripts Potassium Chloride (Potassium Chloride) 20 Meq Tablet.er, 10 MEQ PO DAILY for 90 Days, #90 TAB 4 Refills Prov:MANAS RAMIREZ MD 12/24/17 Furosemide (FUROSEMIDE) 40 Mg Tablet, 0.5 TAB PO DAILY, #90 TAB 3 Refills Prov:MANAS RAMIREZ MD 12/24/17 Lidocaine (Lidocaine) 5 % Adh..patch, 1 PATCH TD Q12H for 30 Days, #30 PATCH Prov:MANAS RAMIREZ MD 11/13/17 Diclofenac Sodium 1% Gel (VOLTAREN 1% GEL) 100 Gm Gel..gram., 2 GM TOP TID for 30 Days, #1 TUBE Prov:MANAS RAMIREZ MD 11/13/17 Acetaminophen 500 Mg Tab (ACETAMINOPHEN EXTRA STRENGTH) 500 Mg Tablet, 1000 MG PO Q8H for 90 Days, TAB Prov:MANAS RAMIREZ MD 11/07/17 Atorvastatin Calcium (ATORVASTATIN CALCIUM) 10 Mg Tablet, 1 TAB PO QDAY for 90 Days, #90 TAB 4 Refills Prov:MANAS RAMIREZ MD 08/28/17 Levothyroxine Sodium (LEVOTHYROXINE SODIUM) 50 Mcg Tablet, 1 TAB PO QDAY, #90 TAB 4 Refills Prov:MANAS RAMIREZ MD 07/10/17 Allopurinol (ZYLOPRIM) 300 Mg Tablet, 1 TAB PO QDAY, #90 TAB 4 Refills Prov:MANAS RAMIREZ MD 06/08/17 Metoprolol Succinate (METOPROLOL SUCCINATE) 100 Mg Tab.er.24h, 1 TAB PO QDAY, #90 TAB 4 Refills Prov:MANAS RAMIREZ MD 04/11/17 Reported Medications Tamsulosin Hcl (TAMSULOSIN HCL) 0.4 Mg Cap.er.24h, 1 CAP PO HS, CAP 11/27/17 Aspirin (ASPIR 81) 81 Mg Tablet.dr, 1 TAB PO QDAY, TAB 04/05/17 Allergies: Coded Allergies: vancomycin (Verified Allergy, Severe, ITCHING, RASH, 01/11/18) hydrocodone (Verified Allergy, Mild, NAUSEA AND VOMITING , 01/11/18) Penicillins (Verified Allergy, Unknown, 01/11/18) phenazopyridine (Verified Allergy, Unknown, NAUSEA AND VOMITING, 01/11/18) adhesive tape (Verified Adverse Reaction, Mild, 01/11/18) cyclobenzaprine (Verified Adverse Reaction, Unknown, Delirium, 01/11/18) Patient History: FH: lymphoma CHILD Hx Smoking: No Smoking Status: Never Smoker Exposure to Second Hand Smoke?: No Caffeine Intake: Coffee Caffeine/Cups Per Day: 1 cup "every now and then" Hx Alcohol Use: No Hx Substance Use Disorder: No Social Drug Use: Never Review of Systems Constitutional: No Fever, No Chills Neurological: Confusion, Weakness Cardiovascular: No Chest Pain, No Palpitations Respiratory: No Shortness of Breath, No Cough Gastrointestinal: No Nausea, No Vomiting, No Diarrhea; Constipation Genitourinary: Urinary Incontinence Musculoskeletal: Pain, Impaired Mobility Exam Vital Signs Vital Signs Date Time Temp Pulse Resp B/P (MAP) Pulse Ox O2 Delivery O2 Flow Rate FiO2 01/11/18 21:32 92 01/11/18 21:03 Room Air 01/11/18 20:46 98.1 73 20 136/83 (100) 01/11/18 15:40 2 General Appearance: Alert, Awake, Other (oriented to person/place/partially to time) Neuro: Other (No focal motor or sensory deficits/significant back pain with lower extremity testing) Eyes: PERRLA ENT: Oropharynx Clear Neck: No Masses Cardiovascular: Regular Rate and Rhythm (with systolic murmur), No JVD Respiratory: Clear to Auscultation Chest: No Tenderness, Other (pacemaker left upper chest) GI: Abd Soft and Non-Tender : No CVA Tenderness Extremities: Warm, Perfused, Edema (trace pedal edema) Integumentary: Generalized Fragile Skin Medical Decision Making Data Points Result Diagram: 01/11/18 1000 01/11/18 0000 Item Value Date Time Erythrocyte Sedimentation Rate 21 mm/HOUR H 01/11/18 0000 C-Reactive Protein 5.0 mg/dl H 01/11/18 0000 Albumin 3.9 g/dl 01/11/18 0000 Total Protein 7.3 g/dl 01/11/18 0000 Alkaline Phosphatase 57 U/L 01/11/18 0000 Alanine Aminotransferase (ALT/SGPT) 20 U/L 01/11/18 0000 Aspartate Amino Transf (AST/SGOT) 23 U/L 01/11/18 0000 Total Bilirubin 1.2 mg/dl 01/11/18 0000 Calcium Level 8.9 mg/dl 01/11/18 0000 Lactate 1.2 mmol/L 01/11/18 1049 Urine Color Yellow 01/11/18 1105 Urine Clarity Clear 01/11/18 1105 Urine pH 5.0 pH 01/11/18 1105 Urine Specific [place] 1.015 01/11/18 1105 Urine Protein 30 mg/dL 01/11/18 1105 Urine Glucose (UA) Negative mg/dL 01/11/18 1105 Urine Ketones Negative mg/dL 01/11/18 1105 Urine Blood Moderate 01/11/18 1105 Urine Nitrite Negative 01/11/18 1105 Urine Bilirubin Negative 01/11/18 1105 Urine Urobilinogen Negative mg/dL 01/11/18 1105 Urine Leukocyte Esterase Negative 01/11/18 1105 Urine RBC 86 /HPF 01/11/18 1105 Urine WBC 6 /HPF 01/11/18 1105 Urine Squamous Epithelial Cells None /LPF 01/11/18 1105 Urine Bacteria Negative /HPF 01/11/18 1105 Urine Mucus None /HPF 01/11/18 1105 Influenza Virus Type A (PCR) Negative 01/11/18 1343 Influenza Virus Type B (PCR) Negative 01/11/18 1343 EKG / Imaging Imaging PATIENT NAME: Corky Ramos : 1935 MR: [id number] V: [id number] EXAM DATE: ORDERING PHYSICIAN: DIONICIO REEVES TECHNOLOGIST: Location: [facility] [place] Patient: Corky Ramos : 1935 Visit/Account:[id number] Date of Sevice: 01/11/2018 EXAMINATION: CT abdomen with IV contrast CT pelvis with IV contrast CT lumbar spine with IV contrast (reformatted) HISTORY: Fever. Abdominal pain. COMPARISON: CT of the abdomen and pelvis and lumbar spine without contrast from the same day. TECHNIQUE: Axial images were taken through the abdomen and pelvis with intravenous contrast. Sagittal and coronal reformatted images are also submitted. Source data was reformatted at thin slice collimation and small field of view over the lumbar spine. Stored on PACS are reformatted axial, sagittal and coronal lumbar spine series. CONTRAST: 75 mL of IV [id number] One of the following dose optimization techniques was utilized in the performance of this exam: Automated exposure control; adjustment of the mA and/or kV according to the patient's size; or use of an iterative reconstruction technique. Specific details can be referenced in the facility's radiology CT exam operational policy. FINDINGS: Liver/biliary: Subcentimeter hypoattenuating focus in the left lobe of the liver, too small to characterize. Tiny calculus in the gallbladder. Pancreas: Negative. Spleen: Negative. Adrenal glands: 1.2 cm left adrenal nodule. Kidneys: Status post left nephrectomy. A 1.8 cm partially calcified nodule at the left renal bed. Multiple cysts in the right kidney, the largest measuring 8.7 cm. A 2.7 cm hyperdense cyst in the right kidney. A 1.4 cm probable hyperdense cyst in the right kidney. Pelvic structures: Alan catheter in the urinary bladder. Air within the urinary bladder. Bowel: Mild colonic diverticulosis without evidence of diverticulitis. Normal appendix. Peritoneum/retroperitoneum/mesenteries: Negative. Vessels: Aortic valve replacement. Calcified plaque along the aorta and iliac arteries. Mild ectasia of the left common iliac artery. Ectasia of the celiac trunk, measuring 1.5 cm in diameter. Mild ectasia of the proximal superior mesenteric artery which measures 1.1 cm in diameter. 2 right renal arteries. Musculoskeletal/body wall: Endplate irregularity and sclerosis at L4-5 with mild stranding in the anterior paraspinal fat along the L4-5 disc. No evidence of paraspinal abscess. Lymph node assessment: Negative. Lower chest: Pacer leads in the right atrium and right ventricle. Subsegmental atelectasis at the lung bases. CT LUMBAR SPINE: Alignment: Mild left convex curvature of the lumbar spine. Vertebral bodies: Erosions of the L4-5 endplates. Increased attenuation in the marrow along the L4-5 endplates. Posterior elements: Multilevel facet hypertrophy. Disc Spaces: Erosions of the L4-5 endplates, new compared with previous CT on 11/03/2017. Severe disc space narrowing at L5-S1 with vacuum disc phenomenon. Mild disc degenerative changes at other levels in the lumbar spine. Soft tissues: There is stranding in the anterior paraspinal soft tissues along the L4-5 disc. No paraspinal abscess. No definite evidence of epidural abscess. 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 There are inflammatory changes in the anterior paraspinal soft tissues at L4-5. No abscess in the anterior paraspinal soft tissues. No definite evidence of epidural abscess. Multiple chronic findings in the abdomen and pelvis as detailed in the body of report. These findings were discussed with DIONICIO REEVES at 01/11/2018 7:06 PM. Report Dictated By: Leonid Alonzo MD at 01/11/2018 6:55 PM Report E-Signed By: Leonid Alonzo MD at 01/11/2018 7:28 PM WSN:[id number] PATIENT NAME: Corky Ramos : 1935 MR: [id number] V: [id number] EXAM DATE: ORDERING PHYSICIAN: DIONICIO REEVES TECHNOLOGIST: Location: [facility] [place] Patient: Corky Ramos : 1935 Visit/Account:[id number] Date of Sevice: 01/11/2018 CT Head without contrast Indication: Confusion and fever. Comparison: None available Technique: Axial CT images were obtained through the brain from the skull base to the vertex without administration of IV contrast. Reformatted coronal and sagittal images were also obtained. One of the following dose optimization techniques was utilized in the performance of this exam: automated exposure control; adjustment of the mA and/or kV according to the patient's size; or use of an iterative reconstruction technique. Specific details can be referenced in the facility's radiology CT exam operational policy. Findings: No evidence of mass, mass effect, or midline shift. No acute intracranial hemorrhage or acute territorial infarction. No extra-axial fluid collection or hydrocephalus. Age-related cerebral atrophy. Periventricular white matter ischemic changes consistent small vessel disease. Avendaño/white matter differentiation appears normal. Bony structures show no fractures or lesions. Small focal area of mucosal thickening seen in the posterior left maxillary sinus which may represent a small cyst/polyp. The remaining sinuses and mastoids visualized are clear. IMPRESSION: 1. Senescent changes without acute abnormality. 2. Mild left maxillary sinus disease. Report Dictated By: Manuel Shaikh at 01/11/2018 2:57 PM Report E-Signed By: Manuel Shaikh at 01/11/2018 3:01 PM WSN:[id number] PATIENT NAME: Corky Ramos : 1935 MR: [id number] V: [id number] EXAM DATE: ORDERING PHYSICIAN: DIONICIO REEVES TECHNOLOGIST: Location: [facility] [place] Patient: Corky Ramos : 1935 Visit/Account:[id number] Date of Sevice: 01/11/2018 CHEST SINGLE AP Indication: Fever and confusion. Comparison: October 09, 2016 Findings: Left chest wall pacer device is unchanged. Heart size within normal limits. Calcification within the aortic knob. There is no focal infiltrate or lobar consolidation. No pneumothorax or pleural effusion. IMPRESSION: 1. No acute cardiopulmonary process. Report Dictated By: Wilder Moscoso MD at 01/11/2018 12:53 PM Report E-Signed By: Wilder Moscoso MD at 01/11/2018 12:54 PM WSN:[email or web address] Assessment and Plan Problems: (1) Discitis Status: Acute Assessment & Plan: It appears he has an acute discitis/possible vertebral osteomyelitis. No evidence of abscess was seen. Blood cultures have been obtained in the ER. Will place on cefepime 2gm IV q24hrs and vancomycin 1.25gm IV q12hrs. 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 He has received vancomycin since that episode and tolerated very well as long as infusion is slow. He will need a minimum of 6 weeks of IV antibiotics. Will check echocardiogram (may need BUDDY). (2) Hypothyroid Status: Chronic Assessment & Plan: Continue replacement therapy with L-thyroxine. (3) HTN (hypertension) Status: Chronic Assessment & Plan: Continue metoprolol. Watch BPs. Modify if needed. (4) Dementia Status: Chronic Assessment & Plan: He does appear to have some acute delirium on top of his underlying mild dementia. Hopefully, this will clear with treatment of his acute illness. 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 Will check echocardiogram to evaluate. Copies to: MANAS RAMIREZ MD ; Venous Thromboembolism Antithrombotics Is Pt On Any Antithrombotics?: Yes Exam Sepsis Risk: No Definite Risk Problem Qualifiers (1) Discitis: Spinal region: lumbar Qualified Codes: M46.46 - Discitis, unspecified, lumbar region ELBERT CARLSON MD Jan 11, 2018 22:49
[2018-01-11] MEDS ORDERED: VANCOMYCIN 0.5 GM VIAL ONE (23:00)
[2018-01-11] MEDS ORDERED: CEFEPIME HCL 2 GM VIAL IVP SCH ×2 (23:00→23:30)
[2018-01-11] MEDS ORDERED: BISACODYL 10 MG SUPP PR PRN (23:05)
[2018-01-11] MEDS ORDERED: MAGNESIUM HYDROXIDE* 30ML UDCP PO PRN (23:05)
[2018-01-11] MEDS: ACETAMINOPHEN 325 MG TAB PO SCH (23:23)
[2018-01-11] MEDS: NS(*) 0.9% 1000 ML BAG 1,000 ML IV PRN (23:24)
[2018-01-11 23:25] VITALS: BP 135/101
[2018-01-12 03:50] VITALS: BP 143/85
[2018-01-12] MEDS ORDERED: VANCOMYCIN(*) 1 GM VIAL 1 GM, VANCOMYCIN (*) 0.5 GM VIAL 0.25 GM in NS(*) 0.9% 250 ML B... IVPB SCH (04:00)
[2018-01-12] MEDS: LEVOTHYROXINE SOD 0.05 MG TAB PO SCH (05:36)
[2018-01-12] MEDS: ACETAMINOPHEN 325 MG TAB PO SCH ×3 (05:37→17:36)
[2018-01-12 06:33] LABS: PLATELET COUNT, AUTOMATED 127 K/uL (150-450)
[2018-01-12 07:27] VITALS: BP 147/90
[2018-01-12] MEDS: ALLOPURINOL 300 MG TAB PO SCH (09:18)
[2018-01-12] MEDS: ASPIRIN 81 MG ENTERIC COATED PO SCH (09:18)
[2018-01-12] MEDS: METOPROLOL SUCC XL 50 MG TABCR 50 MG TAB.ER.24H PO SCH (09:18)
[2018-01-12] MEDS: ENOXAPARIN 40 MG/0.4ML SYR SC SCH (09:18)
[2018-01-12] MEDS: LIDOCAINE 5% PATCH TP SCH (09:20)
--- NOTE | 2018-01-12 10:22 | Hospitalist Progress Note ---
Subjective Progress Notes Subjective The patient states his pain is better today. Physical Exam Vital Signs Date Time Temp Pulse Resp B/P (MAP) Pulse Ox O2 Delivery O2 Flow Rate FiO2 01/12/18 07:27 69 01/12/18 07:27 90 Room Air 01/12/18 07:27 96.8 16 147/90 (109) 01/11/18 15:40 2 Intake and Output 01/12/18 07:00 Intake Total 1108 ml Output Total 1975 ml Balance -867 ml Intake Oral 200 ml IV Total 908 ml Output Urine Total 1975 ml General Appearance: Alert, Awake, No Acute Distress, Other (Tmax 101.7) Eyes: PERRLA Cardiovascular: Regular Rate and Rhythm Respiratory: Clear to Auscultation GI: Soft and Non-Tender Extremities: Warm, Perfused, Other (No edema.) Integumentary: Skin Intact without Lesion / Mass Psych: Appropriate Mood & Affect Result Diagram: 01/12/1857 01/12/18556 Assessment and Plan Problems: (1) Discitis Status: Acute Assessment & Plan: It appears he has an acute discitis/possible vertebral osteomyelitis. No evidence of abscess was seen. Blood cultures were obtained in the ER and are no growth so far. He is on cefepime 2gm IV q24hrs and vancomycin 1.25gm IV q12hrs. He has a reported allergy to vancomycin - rash/Red Man syndro me. He has received vancomycin since that episode and tolerated very well as long as infusion is slow. He will need a minimum of 6 weeks of IV antibiotics. Will check echocardiogram (may need BUDDY). (2) Hypothyroid Status: Chronic Assessment & Plan: Continue replacement therapy with L-thyroxine. (3) HTN (hypertension) Status: Chronic Assessment & Plan: Continue metoprolol. Watch BPs. Modify if needed. (4) Dementia Status: Chronic Assessment & Plan: He did appear to have some acute delirium on top of his underlying mild dementia. This has improved with treatment of his acute illness. The family states he does not do well with ANY narcotic pain med including Tramadol. Will continue Tylenol and Lidoderm patch. 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 Will check echocardiogram to evaluate. The p atient did develop sepsis after a heart cath in February of 2016 with subsequent endocarditis. 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 Will get the records from [facility]. Dr. Ocampo performed his surgery. Time Spent on Plan of Care: < 30 min Exam Sepsis Risk: No Definite Risk Problem Qualifiers (1) Discitis: Spinal region: lumbar Qualified Codes: M46.46 - Discitis, unspecified, lumbar region QUINTIN CARLSON MD Jan 12, 2018 10:22
[2018-01-12 11:43] VITALS: BP 147/90
[2018-01-12 13:41] VITALS: Ht 170.2 cm; Wt 76.0 kg
[2018-01-12 15:03] VITALS: BP 173/85
[2018-01-12] MEDS: VANCOMYCIN(*) 1 GM VIAL 1 GM, VANCOMYCIN (*) 0.5 GM VIAL 0.25 GM in NS(*) 0.9% 250 ML B... IVPB SCH (16:56)
[2018-01-12] MEDS: NS(*) 0.9% 1000 ML BAG 1,000 ML IV PRN (17:37)
[2018-01-12 19:22] VITALS: BP 152/91
[2018-01-12] MEDS: PATCH REMOVAL 1 EA TP SCH (20:40)
[2018-01-12] MEDS: ATORVASTATIN 10 MG TAB PO SCH (20:40)
[2018-01-12] MEDS: CEFEPIME HCL 2 GM VIAL IVP SCH (22:19)
[2018-01-13] MEDS: ACETAMINOPHEN 325 MG TAB PO SCH ×4 (00:05→20:21)
[2018-01-13 00:17] VITALS: BP 147/92
[2018-01-13 04:53] LABS: PLATELET COUNT, AUTOMATED 149 K/uL (150-450)
[2018-01-13] MEDS: VANCOMYCIN(*) 1 GM VIAL 1 GM, VANCOMYCIN (*) 0.5 GM VIAL 0.25 GM in NS(*) 0.9% 250 ML B... IVPB SCH ×2 (05:22→16:51)
[2018-01-13] MEDS: LEVOTHYROXINE SOD 0.05 MG TAB PO SCH (08:59)
[2018-01-13] MEDS: ASPIRIN 81 MG ENTERIC COATED PO SCH (09:00)
[2018-01-13] MEDS: NS(*) 0.9% 1000 ML BAG 1,000 ML IV PRN ×2 (09:01→22:42)
[2018-01-13] MEDS: ALLOPURINOL 300 MG TAB PO SCH (09:01)
[2018-01-13] MEDS: METOPROLOL SUCC XL 50 MG TABCR 50 MG TAB.ER.24H PO SCH (09:01)
[2018-01-13] MEDS: ENOXAPARIN 40 MG/0.4ML SYR SC SCH (09:11)
[2018-01-13] MEDS: LIDOCAINE 5% PATCH TP SCH (09:11)
[2018-01-13 09:17] VITALS: BP 116/74
[2018-01-13] MEDS: CELECOXIB 100 MG CAP PO PRN ×2 (09:46→20:21)
--- NOTE | 2018-01-13 13:19 | Hospitalist Progress Note ---
Subjective Progress Notes Subjective He didn't sleep much and was more agitated during the night. More calm now. He is without complaints. Family is in the room. Physical Exam Vital Signs Date Time Temp Pulse Resp B/P (MAP) Pulse Ox O2 Delivery O2 Flow Rate FiO2 01/13/18 09:17 98.4 73 20 116/74 (88) 90 Room Air 01/11/18 15:40 2 Intake and Output 01/13/18 06:59 Intake Total 2879 ml Output Total 1350 ml Balance 1529 ml Intake Oral 1212 ml IV Total 1667 ml Output Urine Total 1350 ml # Bowel Movements 4 General Appearance: Alert, Awake, No Acute Distress Neuro: Other (Orientated only to place. He does reach out imaginary objects.) Cardiovascular: Regular Rate and Rhythm (2/6 systolic murmur across the precordium) Respiratory: Other (Clear anteriorly) Result Diagram: 01/13/1841501/13/18415 Assessment and Plan Problems: (1) Discitis Status: Acute Assessment & Plan: It appears he has an acute discitis/possible vertebral osteomyelitis. No evidence of abscess was seen. Blood cultures were obtained in the ER and one of two is growing GPC. He is on cefepime 2gm IV q24hrs and vancomycin 1.25gm IV q12hrs. 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 He has received vancomycin since that episode and tolerated very well as long as infusion is slow. He will need a minimum of 6 weeks of IV antibiotics. TTE showed no valvular abnormalities (including his bovine prosthetic valve (may need BUDDY). He is scheduled to get a PICC line tomorrow, with plans to treat for 6 weeks. 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 (2) Delirium Status: Acute Assessment & Plan: He has acute delirium on top of his underlying mild dementia. The family states he does not do well with ANY narcotic pain med including Tramadol because it historically exacerbates the delirium. His daughter (an Oncologist) has okayed the use of prn Zyprexa for delirium and NSAIDs for pain. Will continue Tylenol and Lidoderm patch. (3) Dementia Status: Chronic Assessment & Plan: See above. (4) Aortic valve replaced Status: Chronic Assessment & Plan: Bovine valve. See above. The patient did develop sepsis after a heart cath in February of 2016 with subsequent endocarditis. He had AVR and care home antibiotics after. We have the records from 2016 related to admission and subsequent cardiology visits. 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 Creatinine stable. (6) HTN (hypertension) Status: Chronic Assessment & Plan: Continue metoprolol. Watch BPs. Modify if needed. (7) Hypothyroid Status: Chronic Assessment & Plan: Continue replacement therapy with L-thyroxine. Exam Sepsis Risk: No Definite Risk Problem Qualifiers (1) Discitis: Spinal region: lumbar Qualified Codes: M46.46 - Discitis, unspecified, lumbar region DOE DON MD Jan 13, 2018 13:19
[2018-01-13 15:04] VITALS: BP 100/62
[2018-01-13 20:19] VITALS: BP 148/88
[2018-01-13] MEDS: MELATONIN 3 MG TAB PO SCH (20:21)
[2018-01-13] MEDS: ATORVASTATIN 10 MG TAB PO SCH (20:21)
[2018-01-13] MEDS: PATCH REMOVAL 1 EA TP SCH (20:21)
[2018-01-13] MEDS: CEFEPIME HCL 2 GM VIAL IVP SCH (22:42)
[2018-01-14] MEDS: ACETAMINOPHEN 325 MG TAB PO SCH ×4 (03:00→20:41)
[2018-01-14 04:04] VITALS: BP 141/88
[2018-01-14 04:14] LABS: PLATELET COUNT, AUTOMATED 148 K/uL (150-450)
[2018-01-14] MEDS ORDERED: VANCOMYCIN(*) 1 GM VIAL 1 GM in NS(*) 0.9% 250 ML BAG 250 ML IVPB SCH (05:00)
[2018-01-14] MEDS: LEVOTHYROXINE SOD 0.05 MG TAB PO SCH (05:28)
[2018-01-14 07:22] VITALS: BP 147/96
[2018-01-14] MEDS: METOPROLOL SUCC XL 50 MG TABCR 50 MG TAB.ER.24H PO SCH (08:43)
[2018-01-14] MEDS: ALLOPURINOL 300 MG TAB PO SCH (08:43)
[2018-01-14] MEDS: ASPIRIN 81 MG ENTERIC COATED PO SCH (08:43)
[2018-01-14] MEDS: ENOXAPARIN 40 MG/0.4ML SYR SC SCH (08:47)
[2018-01-14] MEDS: LIDOCAINE 5% PATCH TP SCH (08:47)
[2018-01-14] MEDS: CELECOXIB 100 MG CAP PO PRN (14:51)
[2018-01-14] MEDS: PATCH REMOVAL 1 EA TP SCH (14:52)
[2018-01-14 14:57] VITALS: BP 159/100
--- NOTE | 2018-01-14 16:34 | Antimicrobial Stewardship ---
Antimicrobial Stewardship Empiricly appropriate: Yes (Treatment of discitis) Significant PMH: Yes (Pt has hx of endocarditis, pacemaker, bovine aortic valve) Duplicate/overlapping Rx: No Comment Empirically started on Vancomycin Approriate Cultures done: Yes Cultures need repeate: Yes (Repeat blood cultures recommended to ensure clearing of bacteremia) Gram stain show Microbs: Yes (GPC in clusters in both blood cultures) Appropriate dose for site: Yes Serum concentration checked: Yes Comment Vancomycin troughs have been between 15-20, would only adjust vanco dosing regimen if trough exceeds 25 Determine cumulative duration: 6 weeks of IV antibiotics Determine standard duration: GPC in clusters Vancomycin appropriate, maintain trough of 15-20 at minimum Comment 82 yo M with a history of endocarditis, pacemaker, bovine aortic valve who presented to the ED with confusion and back pain. Prior to admission was under treatment for a UTI with ciprofloxacin. Found to have discitis, positive blood cultures growing GPC in clusters in both sets. Pt did present with leukocytosis and fever, recommend continued treatment with Vancomycin with goal trough of 15- 20. 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 Continue to monitor, will follow cultures and adjust as appropriate. Kinza Patino, PharmD, BCOP KINZA PATINO Jan 14, 2018 16:34
--- NOTE | 2018-01-14 16:37 | RADIOLOGY IMAGING REPORT ---
FACILITY: [facility] [place] PATIENT NAME: Corky Ramos : 1935 MR: [id number] V: [id number] EXAM DATE: ORDERING PHYSICIAN: ELBERT CARLSON TECHNOLOGIST: Location: [facility] Patient: Corky Ramos : 1935 Visit/Account:[id number] Date of Sevice: 01/14/2018 Exam type: PICC LINE PLACEMENT, PICC LINE INSERTION History: discitis/long-term IV antibiotics Comparison: None. Findings: Informed consent was obtained from the patient's . The patient's right arm was prepped and drape d usual sterile fashion. Local anesthesia was accomplished 1% lidocaine. Under sonographic and fluo roscopic guidance a 43 cm long trimmed 5 [place]odian double lumen power PICC was inserted via the patent r ight basilic vein with the distal tip resting in superior vena cava. Both lumens of power PICC were flushed with 5 mL of saline flush. Proximal portion PICC line was adhered the patient's arm the ster ile dressing. The sonographic images were saved to PACS. The procedure was accomplished without melanie arent complication. The fluoroscopy dose area product was 67.11 micro-Avendaño per meter squared. IMPRESSION: 1. Successful placement of a 43 cm long trimmed 5 Cambodian double lumen power PICC inserted via the pa tent right basilic vein with the distal tip resting in superior vena cava. Report Dictated By: Susan Norwood MD at 01/14/2018 4:31 PM Report E-Signed By: Susan Norwood MD at 01/14/2018 4:33 PM WSN:[email or web address]
--- NOTE | 2018-01-14 16:37 | RADIOLOGY IMAGING REPORT ---
[place] [facility] [place]: Corky Ramos : 1935 MR: [id number] V: [id number] EXAM DATE: ORDERING PHYSICIAN: ELBERT CARLSON TECHNOLOGIST: Location: [facility] Patient: Corky Ramos : 1935 Visit/Account:[id number] Date of Sevice: 01/14/2018 Exam type: PICC LINE PLACEMENT, PICC LINE INSERTION History: discitis/nursing home IV antibiotics Comparison: None. Findings: Informed consent was obtained from the patient's . The patient's right arm was prepped and drape d usual sterile fashion. Local anesthesia was accomplished 1% lidocaine. Under sonographic and fluo roscopic guidance a 43 cm long trimmed 5 Slovak double lumen power PICC was inserted via the patent r ight basilic vein with the distal tip resting in superior vena cava. Both lumens of power PICC were flushed with 5 mL of saline flush. Proximal portion PICC line was adhered the patient's arm the ster ile dressing. The sonographic images were saved to PACS. The procedure was accomplished without melanie arent complication. The fluoroscopy dose area product was 67.11 micro-Avendaño per meter squared. IMPRESSION: 1. Successful placement of a 43 cm long trimmed 5 Slovak double lumen power PICC inserted via the pa tent right basilic vein with the distal tip resting in superior vena cava. Report Dictated By: Susan Norwood MD at 01/14/2018 4:31 PM Report E-Signed By: Susan Norwood MD at 01/14/2018 4:33 PM WSN:[email or web address]
[2018-01-14] MEDS ORDERED: VANCOMYCIN 1 GM ADDVIAL 1 GM in NS(*) 0.9% 250 ML ADDVAN BAG 250 ML IVPB SCH (17:00)
--- NOTE | 2018-01-14 17:00 | Hospitalist Progress Note ---
Subjective Progress Notes Subjective 82M admitted for discitis. VENUS overnight, mental status improving. BCx all growing coagulase negative staph. Patient Complains of: Cardiovascular: No: Chest Pain Gastrointestinal: No Nausea, No Vomiting Physical Exam Vital Signs Date Time Temp Pulse Resp B/P (MAP) Pulse Ox O2 Delivery O2 Flow Rate FiO2 01/14/18 14:57 98.7 21 159/100 (119) 93 Room Air 01/14/18 07:22 73 01/13/18 22:18 2.0 Intake and Output 01/14/18 07:00 Intake Total 3256 ml Output Total 1325 ml Balance 1931 ml Intake Oral 792 ml IV Total 2464 ml Output Urine Total 1325 ml # Bowel Movements 2 General Appearance: Alert, Awake, No Acute Distress Neuro: No Gross deficits Eyes: PERRLA ENT: Normal Neck: No Masses Cardiovascular: Normal Rhythm & Peripheral Pulses Respiratory: No Respiratory Distress GI: Soft and Non-Tender Extremities: Soft and Non Tender, Warm, Pulses, Perfused Result Diagram: 01/14/1840601/14/18406 Assessment and Plan Problems: (1) Discitis Status: Acute Assessment & Plan: It appears he has an acute discitis/possible vertebral osteomyelitis. No evidence of abscess was seen. Blood cultures were obtained in the ER and growing coagulase negative staph. He is on cefepime 2gm IV q24hrs and vancomycin 1.25gm IV q12hrs. 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 He has received vancomycin since that episode and tolerated very well as long as infusion is slow. He will need a minimum of 6 weeks of IV antibiotics. TTE showed no valvular abnormalities (including his bovine prosthetic valve (may need BUDDY). PICC placed. 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 Discussed with ID via doc line who recommend he be transferred so formal ID consult can be obtained. Discussed with family who are considering goals of care and would like to wait for identification before deciding how aggressive to be with therapy. (2) Delirium Status: Acute Assessment & Plan: Improving. He has acute delirium on top of his underlying mild dementia. The family states he does not do well with ANY narcotic pain med including Tramadol because it historically exacerbates the delirium. His daughter (an Oncologist) has okayed the use of prn Zyprexa for delirium and NSAIDs for pain. Will continue Tylenol and Lidoderm patch. (3) Dementia Status: Chronic Assessment & Plan: See above. (4) Aortic valve replaced Status: Chronic Assessment & Plan: Bovine valve. See above. The patient did develop sepsis after a heart cath in February of 2016 with subsequent endocarditis. He had AVR and detention antibiotics after. We have the records from 2016 related to admission and subsequent cardiology visits. 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 Creatinine stable. (6) HTN (hypertension) Status: Chronic Assessment & Plan: Continue metoprolol. Watch BPs. Modify if needed. (7) Hypothyroid Status: Chronic Assessment & Plan: Continue replacement therapy with L-thyroxine. Exam Sepsis Risk: No Definite Risk Problem Qualifiers (1) Discitis: Spinal region: lumbar Qualified Codes: M46.46 - Discitis, unspecified, lumbar region BRIANNA BUCKLEY DO Jan 14, 2018 17:00
[2018-01-14 19:27] VITALS: BP 121/84
[2018-01-14] MEDS: ATORVASTATIN 10 MG TAB PO SCH (20:36)
[2018-01-14] MEDS: MELATONIN 3 MG TAB PO SCH (20:36)
[2018-01-14] MEDS: CEFEPIME HCL 2 GM VIAL IVP SCH (22:28)
[2018-01-14 23:38] VITALS: BP 150/94
[2018-01-15] MEDS: OLANZapine ZYDIS ODT 5MG TABDP PO PRN ×2 (00:44→01:53)
[2018-01-15] MEDS: ACETAMINOPHEN 325 MG TAB PO SCH ×5 (02:11→22:02)
[2018-01-15] MEDS: OLANZapine 10 MG VIAL IM ONLY PRN ×2 (02:12→14:14)
[2018-01-15 04:13] LABS: PLATELET COUNT, AUTOMATED 170 K/uL (150-450)
[2018-01-15] MEDS ORDERED: VANCOMYCIN HCL(*) 0.750 GM ADD 0.75 GM in NS(*) 0.9% 250 ML ADDVAN BAG 250 ML IVPB SCH (05:00)
[2018-01-15] MEDS ORDERED: VANCOMYCIN 1 GM VIAL ONE (05:04)
[2018-01-15] MEDS ORDERED: NS(*) 0.9% 250 ML BAG 250 ML ONE (05:04)
[2018-01-15] MEDS: LEVOTHYROXINE SOD 0.05 MG TAB PO SCH (06:00)
[2018-01-15] MEDS ORDERED: VANCOMYCIN 1 GM ADDVIAL 1 GM in NS(*) 0.9% 250 ML ADDVAN BAG 250 ML IVPB SCH ×3 (08:00→17:00)
[2018-01-15] MEDS: METOPROLOL SUCC XL 50 MG TABCR 50 MG TAB.ER.24H PO SCH (09:00)
[2018-01-15] MEDS: ALLOPURINOL 300 MG TAB PO SCH (09:10)
[2018-01-15] MEDS: LIDOCAINE 5% PATCH TP SCH (09:11)
[2018-01-15 10:15] VITALS: BP 108/69
[2018-01-15] MEDS: VANCOMYCIN 1 GM ADDVIAL 1 GM in NS(*) 0.9% 250 ML ADDVAN BAG 250 ML IVPB SCH ×2 (10:27→22:01)
--- NOTE | 2018-01-15 11:05 | Hospitalist Progress Note ---
Subjective Progress Notes Subjective This patient was admitted for discitis. He has been confused overnight. Patient Complains of: Cardiovascular: No: Chest Pain Respiratory: No: Shortness of Breath Physical Exam Vital Signs Date Time Temp Pulse Resp B/P (MAP) Pulse Ox O2 Delivery O2 Flow Rate FiO2 01/15/18 10:15 100.0 20 108/69 (82) 90 Room Air 01/14/18 23:38 88 1.0 Intake and Output 01/15/18 07:00 Intake Total 1265 ml Output Total 1125 ml Balance 140 ml Intake Oral 695 ml IV Total 570 ml Output Urine Total 1125 ml # Bowel Movements 1 Cardiovascular: Regular Rate and Rhythm Respiratory: Clear to Auscultation Result Diagram: 01/15/18 0400 01/15/18 0400 Item Value Date Time Blood Culture - Final Resulted 01/11/18 1049 Blood Peripheral Draw Item Value Date Time C-Reactive Protein 9.0 mg/dl H 01/14/18 0407 Assessment and Plan Problems: (1) Discitis Status: Acute Assessment & Plan: A CT scan of the lumbar spine did show findings consistent with discitis and possible osteomyelitis at the L4-5 level. Blood cultures were obtained in the ER and are positive for Staphylococcus epidermidis. He was initially on treatment with cefepime and vancomycin. The cefepime was discontinued today. Pharmacy is adjusting the vancomycin doses and recommends not decreasing his levels unless the troughs are greater than 25. The source of his infection is unknown, but this is the same organism he had previously with an endocarditis. We did speak with infectious disease yesterday and it was recommended that he be transferred to a higher level of care. However, the family is resistant to transfer and may request comfort measures only. Currently the plan is that we will do 6 weeks of antibiotics. The family is talking with social work to solidify their wishes. (2) Delirium Status: Acute Assessment & Plan: He has acute delirium on top of his underlying mild dem entia. The family states he does not do well with ANY narcotic pain med including Tramadol because it historically exacerbates the delirium. His daughter (an Oncologist) has okayed the use of prn Zyprexa for delirium and NSAIDs for pain. Will continue Tylenol and Lidoderm patch. (3) Dementia Status: Chronic Assessment & Plan: See above. (4) Aortic valve replaced Status: Chronic Assessment & Plan: Bovine valve. See above. The patient did develop sepsis after a heart cath in February of 2016 with subsequent endocarditis. He had AVR and residential antibiotics after. We have the records from 2016 related to admission and subsequent cardiology visits. 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 Creatinine stable. (6) HTN (hypertension) Status: Chronic Assessment & Plan: Continue metoprolol. Watch BPs. Modify if needed. (7) Hypothyroid Status: Chronic Assessment & Plan: Continue replacement therapy with L-thyroxine. Exam Sepsis Risk: No Definite Risk Problem Qualifiers (1) Discitis: Spinal region: lumbar Qualified Codes: M46.46 - Discitis, unspecified, lumbar region DANILO NATH DO Jan 15, 2018 11:05
[2018-01-15] MEDS: CELECOXIB 100 MG CAP PO PRN (12:14)
[2018-01-15] MEDS: WATER STERILE 10 ML VIAL IM ONLY PRN (14:14)
[2018-01-15 22:02] VITALS: BP 113/85
[2018-01-15] MEDS: ATORVASTATIN 10 MG TAB PO SCH (22:02)
[2018-01-15] MEDS: MELATONIN 3 MG TAB PO SCH (22:02)
[2018-01-15] MEDS: PATCH REMOVAL 1 EA TP SCH (22:05)
[2018-01-16] MEDS: ACETAMINOPHEN 325 MG TAB PO SCH ×4 (03:00→21:21)
[2018-01-16] MEDS: LEVOTHYROXINE SOD 0.05 MG TAB PO SCH (06:00)
[2018-01-16 07:48] VITALS: BP 91/63
[2018-01-16] MEDS ORDERED: OLANZapine 10 MG VIAL IM ONLY PRN (09:30)
[2018-01-16] MEDS: LIDOCAINE 5% PATCH TP SCH (10:04)
[2018-01-16] MEDS: VANCOMYCIN 1 GM ADDVIAL 1 GM in NS(*) 0.9% 250 ML ADDVAN BAG 250 ML IVPB SCH ×2 (10:04→22:18)
[2018-01-16] MEDS: ALLOPURINOL 300 MG TAB PO SCH (10:09)
[2018-01-16] MEDS: CELECOXIB 100 MG CAP PO PRN (10:09)
[2018-01-16] MEDS: METOPROLOL SUCC XL 50 MG TABCR 50 MG TAB.ER.24H PO SCH (10:23)
--- NOTE | 2018-01-16 12:34 | Hospitalist Progress Note ---
Subjective Progress Notes Subjective The patient was very agitated yesterday, but did sleep through the night and is still sleeping. Physical Exam Vital Signs Date Time Temp Pulse Resp B/P (MAP) Pulse Ox O2 Delivery O2 Flow Rate FiO2 01/16/18 08:14 91 Room Air 01/16/18 07:48 98.4 83 22 91/63 (72) 01/14/18 23:38 1.0 Intake and Output 01/16/18 06:59 Intake Total 538 ml Output Total 150 ml Balance 388 ml Intake Oral 0 ml IV Total 538 ml Output Urine Total 150 ml # Voids 2 General Appearance: No Acute Distress, Other (Resting comfortably.) Cardiovascular: Regular Rate and Rhythm (2/6 systolic murmur heard best across the precordium) Result Diagram: 01/15/1839901/15/18399 Assessment and Plan Problems: (1) Discitis Status: Acute Assessment & Plan: A CT scan of the lumbar spine did show findings consistent with discitis and possible osteomyelitis at the L4-5 level and no abscess seen. Blood cultures were obtained in the ER and are positive for Staphylococcus epidermidis. He was initially on treatment with cefepime and vancomycin. The cefepime was discontinued. Pharmacy is adjusting the vancomycin doses and recommends not decreasing his levels unless the troughs are greater than 25. The source of his infection is likely his pacemaker leads and/or bovine prosthetic valve. 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 We did speak with infectious disease on 01/14 and it was recommended that he be transferred to a higher level of care. However, the family is resistant to transfer and may request comfort measures only. Dr. Johnston (Cardiology) came by on 01/15 and recommended the patient go to the [facility] for possible removal of the pacemaker leads if the family wants to be aggressive. Currently, the plan is that we will do 6 weeks of antibiotics. The family is going to have a meeting with the Hospitalist, Pharmacy and the patient's PCP tomorrow, to help create a plan going forward. (2) Delirium Status: Acute Assessment & Plan: He has acute delirium on top of his underlying mild dementia. The family states he does not do well with ANY narcotic pain med including Tramadol because it historically exacerbates the delirium. His daughter (an Oncologist) has okayed the use of prn Zyprexa for delirium and scheduled NSAIDs for pain. Will continue Tylenol and Lidoderm patch. (3) Dementia Status: Chronic Assessment & Plan: See above. (4) Aortic valve replaced Status: Chronic Assessment & Plan: Bovine valve. See above. The patient did develop sepsis after a heart cath in February of 2016 with subsequent endocarditis. He had AVR and nursing home antibiotics after. We have the records from 2016 related to admission and subsequent cardiology visits. 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 Creatinine stable, but follow closely while on vancomycin and scheduled Celebrex. (6) HTN (hypertension) Status: Chronic Assessment & Plan: Continue metoprolol. Watch BPs. Modify if needed. (7) Hypothyroid Status: Chronic Assessment & Plan: Continue replacement therapy with L-thyroxine. Exam Sepsis Risk: No Definite Risk Problem Qualifiers (1) Discitis: Spinal region: lumbar Qualified Codes: M46.46 - Discitis, unspecified, lumbar region DOE DON MD Jan 16, 2018 12:34
[2018-01-16 14:46] VITALS: BP 148/86
[2018-01-16] MEDS: CELECOXIB 100 MG CAP PO SCH (15:44)
[2018-01-16 19:42] VITALS: BP 91/59
[2018-01-16] MEDS: PATCH REMOVAL 1 EA TP SCH (21:00)
[2018-01-16] MEDS: MELATONIN 3 MG TAB PO SCH (21:21)
[2018-01-16] MEDS: ATORVASTATIN 10 MG TAB PO SCH (21:21)
[2018-01-17 00:55] VITALS: BP 136/83
[2018-01-17] MEDS: ACETAMINOPHEN 325 MG TAB PO SCH ×4 (02:31→21:11)
[2018-01-17] MEDS: LEVOTHYROXINE SOD 0.05 MG TAB PO SCH (06:01)
[2018-01-17 06:09] LABS: PLATELET COUNT, AUTOMATED 174 K/uL (150-450)
[2018-01-17 07:33] VITALS: BP 120/89
[2018-01-17] MEDS: ALLOPURINOL 300 MG TAB PO SCH (08:54)
[2018-01-17] MEDS: CELECOXIB 100 MG CAP PO SCH ×2 (08:54→16:14)
[2018-01-17] MEDS: LIDOCAINE 5% PATCH TP SCH (08:55)
[2018-01-17] MEDS: METOPROLOL SUCC XL 50 MG TABCR 50 MG TAB.ER.24H PO SCH (09:00)
[2018-01-17] MEDS: VANCOMYCIN 1 GM ADDVIAL 1 GM in NS(*) 0.9% 250 ML ADDVAN BAG 250 ML IVPB SCH (09:53)
--- NOTE | 2018-01-17 10:40 | Hospitalist Progress Note ---
Subjective Progress Notes Subjective 82M admitted for discitis. VENUS overnight, appears more clear thinking today. Family meeting today at 1500. Physical Exam Vital Signs Date Time Temp Pulse Resp B/P (MAP) Pulse Ox O2 Delivery O2 Flow Rate FiO2 01/17/18 07:35 93 Room Air 01/17/18 07:33 97.7 70 16 120/89 (99) 01/14/18 23:38 1.0 Intake and Output 01/17/18 07:00 Intake Total 910 ml Output Total 625 ml Balance 285 ml Intake Oral 660 ml IV Total 250 ml Output Urine Total 625 ml # Voids 2 # Bowel Movements 1 General Appearance: Alert, Awake, No Acute Distress Neuro: No Gross deficits Eyes: PERRLA ENT: Normal Neck: No Masses Cardiovascular: Normal Rhythm & Peripheral Pulses Respiratory: No Respiratory Distress GI: Soft and Non-Tender Musculoskeletal: No Weakness/Pain Extremities: Soft and Non Tender, Warm, Pulses, Perfused; No Edema Integumentary: Skin Intact without Lesion / Mass Psych: Appropriate Mood & Affect Result Diagram: 01/17/1859 01/17/18558 Assessment and Plan Problems: (1) Discitis Status: Acute Assessment & Plan: A CT scan of the lumbar spine did show findings consistent with discitis and possible osteomyelitis at the L4-5 level and no abscess seen. Blood cultures were obtained in the ER and are positive for Staphylococcus epidermidis. He was initially on treatment with cefepime and vancomycin. The cefepime was discontinued. Pharmacy is adjusting the vancomycin doses and recommends not decreasing his levels unless the troughs are greater than 25. The source of his infection is likely his pacemaker leads and/or bovine prosthetic valve. 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 We did speak with infectious disease on 01/14 and it was recommended that he be transferred to a higher level of care. However, the family is resistant to transfer and may request comfort measures only. Dr. Johnston (Cardiology) came by on 01/15 and recommended the patient go to the [facility] for possible removal of the pacemaker leads if the family wants to be aggressive. Currently, the plan is that we will do 6 weeks of antibiotics. The family is going to have a meeting with the Hospitalist, Pharmacy and the patient's PCP today, to help create a plan going forward. (2) Delirium Status: Acute Assessment & Plan: Improving. He has acute delirium on top of his underlying mild dementia. The family states he does not do well with ANY narcotic pain med including Tramadol because it historically exacerbates the delirium. His daughter (an Oncologist) has okayed the use of prn Zyprexa for delirium and scheduled NSAIDs for pain. Will continue Tylenol and Lidoderm patch. (3) Dementia Status: Chronic Assessment & Plan: See above. (4) Aortic valve replaced Status: Chronic Assessment & Plan: Bovine valve. See above. The patient did develop sepsis after a heart cath in February of 2016 with subsequent endocarditis. He had AVR and intermediate antibiotics after. We have the records from 2016 related to [facility] and subsequent cardiology visits. 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 Creatinine stable, but follow closely while on vancomycin and scheduled Celebrex. (6) HTN (hypertension) Status: Chronic Assessment & Plan: Continue metoprolol. Watch BPs. Modify if needed. (7) Hypothyroid Status: Chronic Assessment & Plan: Continue replacement therapy with L-thyroxine. Exam Sepsis Risk: No Definite Risk Problem Qualifiers (1) Discitis: Spinal region: lumbar Qualified Codes: M46.46 - Discitis, unspecified, lumbar region BRIANNA BUCKLEY DO Jan 17, 2018 10:40
[2018-01-17 16:16] VITALS: BP 136/83
[2018-01-17 19:57] VITALS: BP 131/86
[2018-01-17] MEDS: PATCH REMOVAL 1 EA TP SCH (21:00)
[2018-01-17] MEDS: ATORVASTATIN 10 MG TAB PO SCH (21:11)
[2018-01-17] MEDS: MELATONIN 3 MG TAB PO SCH (21:12)
[2018-01-17] MEDS ORDERED: NS(*) 0.9% 250 ML BAG 250 ML ONE (21:44)
[2018-01-17] MEDS ORDERED: VANCOMYCIN 1 GM ADDVIAL 1 GM in NS(*) 0.9% 250 ML ADDVAN BAG 250 ML IVPB ONE (22:00)
[2018-01-18 02:10] VITALS: BP 135/77
[2018-01-18] MEDS: ACETAMINOPHEN 325 MG TAB PO SCH ×4 (02:15→21:21)
[2018-01-18] MEDS ORDERED: WATER STERILE(*) 10 ML VIAL 10 ML ONE (03:02)
[2018-01-18] MEDS: OLANZapine ZYDIS ODT 5MG TABDP PO PRN (03:02)
[2018-01-18] MEDS: LEVOTHYROXINE SOD 0.05 MG TAB PO SCH (06:05)
[2018-01-18 07:22] VITALS: BP 134/80
[2018-01-18] MEDS: CELECOXIB 100 MG CAP PO SCH ×2 (09:21→17:26)
[2018-01-18] MEDS: ALLOPURINOL 300 MG TAB PO SCH (09:21)
[2018-01-18] MEDS: LIDOCAINE 5% PATCH TP SCH (09:21)
[2018-01-18] MEDS: cefTRIAXone 2 GM VIAL IVP SCH (09:21)
[2018-01-18] MEDS: METOPROLOL SUCC XL 50 MG TABCR 50 MG TAB.ER.24H PO SCH (09:21)
--- NOTE | 2018-01-18 10:25 | Hospitalist Progress Note ---
Subjective Progress Notes Subjective This patient was admitted for discitis. He had no acute events overnight. Patient Complains of: Cardiovascular: No: Chest Pain Respiratory: No: Shortness of Breath Physical Exam Vital Signs Date Time Temp Pulse Resp B/P (MAP) Pulse Ox O2 Delivery O2 Flow Rate FiO2 01/18/18 07:22 89 Room Air 01/18/18 07:22 97.8 77 20 134/80 (98) 01/14/18 23:38 1.0 Intake and Output 01/18/18 06:59 Intake Total 1506 ml Output Total 3675 ml Balance -2169 ml Intake Oral 1256 ml IV Total 250 ml Output Urine Total 3675 ml # Bowel Movements 1 Cardiovascular: Regular Rate and Rhythm Respiratory: Clear to Auscultation Result Diagram: 01/17/18 0559 01/18/18 0534 Assessment and Plan Problems: (1) Discitis Status: Acute Assessment & Plan: A CT scan of the lumbar spine did show findings consistent with discitis and possible osteomyelitis at the L4-5 level and no abscess seen. Blood cultures were obtained in the ER and are positive for Staphylococcus epidermidis. He was initially on treatment with cefepime and vancomycin. He is now on monotherapy with ceftriaxone. The source of his infection is likely his pacemaker leads and/or bovine prosthetic valve. 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 We did speak with infectious disease on 01/14 and it was recommended that he be transferred to a higher level of care. However, the family is resistant to transfer and may request comfort measures only. Dr. Johnston (Cardiology) came by on 01/15 and recommended the patient go to the [facility] for possible removal of the pacemaker leads if the family wants to be aggressive. Currently, the plan is that we will do 6 weeks of antibiotics. Arrangement for ECF transfer are pending until Sunday. (2) Delirium Status: Acute Assessment & Plan: Improving. He has acute delirium on top of his underlying mild dementia. The family states he does not do well with ANY narcotic pain med including Tramadol because it historically exacerbates the delirium. His daughter (an Oncologist) has okayed the use of prn Zyprexa for delirium and scheduled NSAIDs for pain. Will continue Tylenol and Lidoderm patch. (3) Dementia Status: Chronic Assessment & Plan: See above. (4) Aortic valve replaced Status: Chronic Assessment & Plan: Bovine valve. See above. The patient did develop sepsis after a heart cath in February of 2016 with subsequent endocarditis. He had AVR and prison antibiotics after. We have the records from 2016 related to admission and subsequent cardiology visits. 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 Creatinine stable, but follow closely while on vancomycin and scheduled Celebrex. (6) HTN (hypertension) Status: Chronic Assessment & Plan: Continue metoprolol. Watch BPs. Modify if needed. (7) Hypothyroid Status: Chronic Assessment & Plan: Continue replacement therapy with L-thyroxine. Exam Sepsis Risk: No Definite Risk Problem Qualifiers (1) Discitis: Spinal region: lumbar Qualified Codes: M46.46 - Discitis, unspecified, lumbar region DANILO NATH DO Jan 18, 2018 10:24
[2018-01-18 19:22] VITALS: BP 132/84
[2018-01-18] MEDS: PATCH REMOVAL 1 EA TP SCH (21:00)
[2018-01-18] MEDS: MELATONIN 3 MG TAB PO SCH (21:21)
[2018-01-18] MEDS: ATORVASTATIN 10 MG TAB PO SCH (21:21)
[2018-01-18 22:42] VITALS: BP 124/87
[2018-01-19 02:26] VITALS: BP 162/95
[2018-01-19] MEDS: ACETAMINOPHEN 325 MG TAB PO SCH ×5 (02:31→21:02)
[2018-01-19] MEDS: OLANZapine ZYDIS ODT 5MG TABDP PO PRN ×2 (02:36→15:59)
[2018-01-19] MEDS: LEVOTHYROXINE SOD 0.05 MG TAB PO SCH (05:56)
[2018-01-19 06:38] LABS: PLATELET COUNT, AUTOMATED 219 K/uL (150-450)
[2018-01-19 07:38] VITALS: BP 135/104
[2018-01-19] MEDS: LIDOCAINE 5% PATCH TP SCH (08:48)
[2018-01-19] MEDS: ALLOPURINOL 300 MG TAB PO SCH (08:49)
[2018-01-19] MEDS: METOPROLOL SUCC XL 50 MG TABCR 50 MG TAB.ER.24H PO SCH (08:49)
[2018-01-19] MEDS: CELECOXIB 100 MG CAP PO SCH ×2 (08:49→17:48)
[2018-01-19] MEDS: cefTRIAXone 2 GM VIAL IVP SCH (09:36)
[2018-01-19] MEDS: TAMSULOSIN HCL 0.4 MG CAP PO SCH (09:49)
--- NOTE | 2018-01-19 10:20 | Hospitalist Progress Note ---
Subjective Progress Notes Subjective The patient is confused. Physical Exam Vital Signs Date Time Temp Pulse Resp B/P (MAP) Pulse Ox O2 Delivery O2 Flow Rate FiO2 01/19/18 07:38 95 01/19/18 07:38 Room Air 01/19/18 07:38 98.1 20 135/104 (114) 01/19/18 02:26 75 Intake and Output 01/19/18 06:59 Intake Total 820 ml Output Total 975 ml Balance -155 ml Intake Oral 820 ml Output Urine Total 575 ml Post Void Residual 400 ml # Voids 4 # Bowel Movements 1 General Appearance: Alert, Awake Neuro: Other (Confused.) Cardiovascular: Regular Rate and Rhythm Respiratory: Clear to Auscultation GI: Soft and Non-Tender Extremities: Warm, Perfused, Other (No edema.) Psych: Appropriate Mood & Affect Result Diagram: 01/19/18 0555 01/18/18 0534 Assessment and Plan Problems: (1) Discitis Status: Acute Assessment & Plan: A CT scan of the lumbar spine did show findings consistent with discitis and possible osteomyelitis at the L4-5 level and no abscess seen. Blood cultures were obtained in the ER and are positive for Staphylococcus epidermidis. He was initially on treatment with cefepime and vancomycin. He is now on monotherapy with ceftriaxone. The source of his infection is likely his pacemaker leads and/or bovine prosthetic valve. 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 We did speak with infectious disease on 01/14 and it was recommended that he be transferred to a higher level of care. However, the family is resistant to transfer and may request comfort measures only. Dr. Johnston (Cardiology) came by on 01/15 and recommended the p atient go to the [facility] for possible removal of the pacemaker leads if the family wants to be aggressive. Currently, the plan is that we will do 6 weeks of antibiotics. Arrangement for ECF transfer are pending until Sunday. (2) Delirium Status: Acute Assessment & Plan: Improving. He has acute delirium on top of his underlying mild dementia. The family states he does not do well with ANY narcotic pain med including Tramadol because it historically exacerbates the delirium. His daughter (an Oncologist) has okayed the use of prn Zyprexa for delirium and scheduled NSAIDs for pain. Will continue Tylenol and Lidoderm patch. (3) Dementia Status: Chronic Assessment & Plan: See above. (4) Aortic valve replaced Status: Chronic Assessment & Plan: Bovine valve. See above. The patient did develop sepsis after a heart cath in February of 2016 with subsequent endocarditis. 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 We have the records from 2016 related to admission and subsequent cardiology visits. 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 Creatinine stable, but follow closely while on vancomycin and scheduled Celebrex. (6) HTN (hypertension) Status: Chronic Assessment & Plan: Continue metoprolol. Watch BPs. Modify if needed. (7) Hypothyroid Status: Chronic Assessment & Plan: Continue replacement therapy with L-thyroxine. Time Spent on Plan of Care: < 30 min Exam Sepsis Risk: No Definite Risk Problem Qualifiers (1) Discitis: Spinal region: lumbar Qualified Codes: M46.46 - Discitis, unspecified, lumbar region QUINTIN CARLSON MD Jan 19, 2018 10:20
[2018-01-19 19:54] VITALS: BP 125/75
[2018-01-19] MEDS: PATCH REMOVAL 1 EA TP SCH (21:00)
[2018-01-19] MEDS: MELATONIN 3 MG TAB PO SCH (21:01)
[2018-01-19] MEDS: ATORVASTATIN 10 MG TAB PO SCH (21:01)
[2018-01-19 22:58] VITALS: BP 100/79
[2018-01-20] MEDS: OLANZapine ZYDIS ODT 5MG TABDP PO PRN (01:07)
[2018-01-20 02:25] VITALS: BP 156/95
[2018-01-20] MEDS: ACETAMINOPHEN 325 MG TAB PO SCH ×5 (06:20→21:28)
[2018-01-20] MEDS: LEVOTHYROXINE SOD 0.05 MG TAB PO SCH (06:20)
[2018-01-20 06:51] LABS: PLATELET COUNT, AUTOMATED 177 K/uL (150-450)
[2018-01-20 07:52] VITALS: BP 133/88
[2018-01-20] MEDS ORDERED: ASPIRIN 81 MG ENTERIC COATED PO SCH (09:00)
[2018-01-20] MEDS: LIDOCAINE 5% PATCH TP SCH (10:09)
[2018-01-20] MEDS: TAMSULOSIN HCL 0.4 MG CAP PO SCH (10:09)
[2018-01-20] MEDS: CELECOXIB 100 MG CAP PO SCH ×2 (10:10→17:00)
[2018-01-20] MEDS: ALLOPURINOL 300 MG TAB PO SCH (10:10)
[2018-01-20] MEDS: METOPROLOL SUCC XL 50 MG TABCR 50 MG TAB.ER.24H PO SCH (10:10)
[2018-01-20] MEDS: cefTRIAXone 2 GM VIAL IVP SCH (10:22)
--- NOTE | 2018-01-20 14:05 | Hospitalist Progress Note ---
Subjective Progress Notes Subjective 82M admitted for sepsis. Overnight had hallucination and required dose Zyprexa. More confused today, appears to be hallucinating and not communicating clearly. Patient Complains of: Neurological: Confusion, Slurred Speech Physical Exam Vital Signs Date Time Temp Pulse Resp B/P (MAP) Pulse Ox O2 Delivery O2 Flow Rate FiO2 01/20/18 09:00 90 Room Air 01/20/18 07:52 98.1 87 16 133/88 (103) Intake and Output 01/20/18 07:00 Intake Total 200 ml Output Total 400 ml Balance -200 ml Intake Oral 200 ml Output Urine Total 400 ml # Voids 11 # Bowel Movements 1 General Appearance: Afebrile ENT: Normal Cardiovascular: Normal Rhythm & Peripheral Pulses Respiratory: No Respiratory Distress GI: Soft and Non-Tender Extremities: Soft and Non Tender, Warm, Pulses, Perfused; No Edema Integumentary: Skin Intact without Lesion / Mass Result Diagram: 01/20/1860701/20/18607 Assessment and Plan Problems: (1) Discitis Status: Acute Assessment & Plan: A CT scan of the lumbar spine did show findings consistent with discitis and possible osteomyelitis at the L4-5 level and no abscess seen. Blood cultures were obtained in the ER and are positive for Staphylococcus epidermidis. He was initially on treatment with cefepime and vancomycin. He is now on monotherapy with ceftriaxone. The source of his infection is likely his pacemaker leads and/or bovine prosthetic valve. 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 We did speak with infectious disease on 01/14 and it was recommended that he be transferred to a higher level of care. However, the family is resistant to transfer and may request comfort measures only. Dr. Johnston (Cardiology) came by on 01/15 and recommended the patient go to the [facility] for possible removal of the pacemaker leads if the family wants to be aggressive. Currently, the plan is that we will do 6 weeks of antibiotics. Arrangement for ECF transfer are pending until Sunday. (2) Delirium Status: Acute Assessment & Plan: Improving. He has acute delirium on top of his underlying mild dementia. The family states he does not do well with ANY narcotic pain med including Tramadol because it historically exacerbates the delirium. His daughter (an Oncologist) has okayed the use of prn Zyprexa for delirium and scheduled NSAIDs for pain. Will continue Tylenol and Lidoderm patch. Add 2.5mg scheduled Zyprexa. Hope to correct day/night cycle and avoid PRN dosing. Much worse today as appears to be hallucinating. (3) Dementia Status: Chronic Assessment & Plan: See above. (4) Aortic valve replaced Status: Chronic Assessment & Plan: Bovine valve. See above. The patient did develop sepsis after a heart cath in February of 2016 with subsequent endocarditis. He had AVR and correction antibiotics after. We have the records from 2016 related to admission and subsequent cardiology visits. 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 Creatinine stable, but follow closely while on scheduled Celebrex. (6) HTN (hypertension) Status: Chronic Assessment & Plan: Continue metoprolol. Watch BPs. Modify if needed. (7) Hypothyroid Status: Chronic Assessment & Plan: Continue replacement therapy with L-thyroxine. Exam Sepsis Risk: No Definite Risk Problem Qualifiers (1) Discitis: Spinal region: lumbar Qualified Codes: M46.46 - Discitis, unspecified, lumbar region BRIANNA BUCKLEY DO Jan 20, 2018 14:05
[2018-01-20 15:45] VITALS: BP 136/109
[2018-01-20] MEDS: WATER STERILE 10 ML VIAL IM ONLY PRN (20:01)
[2018-01-20] MEDS: PATCH REMOVAL 1 EA TP SCH (21:00)
[2018-01-20] MEDS ORDERED: OLANZapine ZYDIS ODT 5MG TABDP PO SCH (21:00)
[2018-01-20] MEDS: ATORVASTATIN 10 MG TAB PO SCH (21:27)
[2018-01-20] MEDS: MELATONIN 3 MG TAB PO SCH (21:27)
[2018-01-21] MEDS: ACETAMINOPHEN 325 MG TAB PO SCH (03:00)
[2018-01-21 05:24] VITALS: BP 111/49
[2018-01-21] MEDS: LEVOTHYROXINE SOD 0.05 MG TAB PO SCH (05:57)
[2018-01-21] MEDS ORDERED: LORazepam 2 MG/ML VIAL IVP PRN (11:20)
[2018-01-21] MEDS ORDERED: MORPHINE 2 MG/ML SYR IVP PRN (11:20)
--- NOTE | 2018-01-21 12:08 | Hospitalist Progress Note ---
Subjective Progress Notes Subjective The patient was agitated most of the night and only fell asleep this morning. Now asleep. The family has contacted Hospice and have elected to stop aggressive treatment. Physical Exam Vital Signs Date Time Temp Pulse Resp B/P (MAP) Pulse Ox O2 Delivery O2 Flow Rate FiO2 01/21/18 05:24 69 22 111/49 (69) 93 Room Air 01/20/18 19:37 98.8 Intake and Output 01/21/18 06:59 Intake Total 720 ml Balance 720 ml Intake Oral 720 ml # Voids 6 General Appearance: Other (Resting comfortably.) Result Diagram: 01/20/18 0608 01/21/18 0521 Assessment and Plan Problems: (1) End of life care Status: Acute Assessment & Plan: Because of the persistent delirium on top of an incurable infection, the family has elected to do comfort care and are looking to have the patient at the [facility]osp[facility]. Morphine, Ativan, Lidoderm patch and Zyprexa as needed to help with pain and agitation. (2) Discitis Status: Acute Assessment & Plan: A CT scan of the lumbar spine did show findings consistent with discitis and possible osteomyelitis at the L4-5 level and no abscess seen. Blood cultures were obtained in the ER and are positive for Staphylococcus epid ermidis. He was initially on treatment with cefepime and vancomycin. He then was on monotherapy with ceftriaxone. The source of his infection is likely his pacemaker leads and/or bovine prosthetic valve. 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 We did speak with infectious disease on 01/14 and it was recommended that he be transferred to a higher level of care. However, the family is resistant to transfer and may request comfort measures only. Dr. Johnston (Cardiology) came by on 01/15 and recommended the patient go to the [facility] for possible removal of the pacemaker leads if the family wants to be aggressive. Now on comfort care. (3) Delirium Status: Acute Assessment & Plan: Waxes and wanes. He has acute delirium on top of his underlying mild dementia. He is still having long periods of agitation, hallucinations and insomnia. The Zyprexa has not seemed to control the symptoms. See above. (4) Dementia Status: Chronic Assessment & Plan: See above. 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 See above. The patient did develop sepsis after a heart cath in February of 2016 with subsequent endocarditis. 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 We have the records from 2016 related to admis jamil and subsequent cardiology visits. 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 Exam Sepsis Risk: No Definite Risk Problem Qualifiers (1) Discitis: Spinal region: lumbar Qualified Codes: M46.46 - Discitis, unspecified, lumbar region DOE DON MD Jan 21, 2018 12:08
[2018-01-21] MEDS: LIDOCAINE 5% PATCH TP SCH (12:55)
[2018-01-21] MEDS ORDERED: LORA2VIA28 IVP (13:07)
[2018-01-21] MEDS ORDERED: MORP2CAR IVP (13:07)
[2018-01-21] MEDS ORDERED: OLAN5TAB PO ×2 (13:08→14:30)
--- NOTE | 2018-01-21 13:23 | Hospitalist Depart ---
Discharge Summary Reason for Hosp/Final Diag: (1) End of life care Status: Acute Hospital Course & Plan: Because of the persistent delirium on top of an incurable infection, the family has elected to do comfort care and are looking to have the patient at the [facility]ospice [facility]. Morphine, Ativan, Lidoderm patch and Zyprexa as needed to help with pain and agitation. (2) Discitis Status: Acute Hospital Course & Plan: A CT scan of the lumbar spine did show findings consistent with discitis and possible osteomyelitis at the L4-5 level and no abscess seen. Blood cultures were obtained in the ER and are positive for Staphylococcus epidermidis. He was initially on treatment with cefepime and vancomycin. He then was on monotherapy with ceftriaxone. The source of his infection is likely his pacemaker leads and/or bovine prosthetic valve. 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 We did speak with infectious disease on 01/14 and it was recommended that he be transferred to a higher level of care. However, the family was resistant to transfer. Dr. Johnston (Cardiology) came by on 01/15 and recommended the patient go to the [facility] for possible removal of the pacemaker leads if the family wants to be aggressive. After a family a meeting, on 01/17, it was decided they would only do antibiotic treatment. The patient continued to have problems with delirium. Now on comfort care. (3) Delirium Status: Acute Hospital Course & Plan: Waxes and wanes. He has acute delirium on top of his underlying mild dementia. He is still having long periods of agitation, hallucinations and insomnia. The Zyprexa has controlled the symptoms, nor have we been able to get him on a consistent sleep schedule with Melatonin and non-pharmacological interventions. See above. (4) Dementia Status: Chronic Hospital Course & Plan: See above. (5) Aortic valve replaced Status: Chronic Hospital Course & Plan: Bovine valve. See above. The patient did develop sepsis after a heart cath in February of 2016 with subsequent endocarditis. He had AVR and detention antibiotics after. We have the records from 2016 related to admission and subsequent cardiology visits. 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 Departure Weight (Pounds): 167 Weight (Ounces): 9.0 Result Diagram: 01/20/18 0608 01/21/18 0521 Item Value Date Time Erythrocyte Sedimentation Rate 21 mm/HOUR H 01/11/18 0000 Erythrocyte Sedimentation Rate 23 mm/HOUR H 01/13/18 0416 White Blood Count 15.7 k/uL H 01/11/18 1000 White Blood Count 9.7 k/uL 01/12/18 0557 White Blood Count 10.7 k/uL 01/13/18 0416 Hemoglobin 13.7 g/dL L 01/11/18 1000 Hemoglobin 12.6 g/dL L 01/12/18 0557 Hemoglobin 12.2 g/dL L 01/13/18 0416 Platelet Count 156 K/uL 01/11/18 1000 Platelet Count 127 K/uL L 01/12/18 0557 Platelet Count 149 K/uL L 01/13/18 0416 C-Reactive Protein 5.0 mg/dl H 01/11/18 0000 Total Bilirubin 1.2 mg/dl 01/11/18 0000 Aspartate Amino Transf (AST/SGOT) 23 U/L 01/11/18 0000 Alanine Aminotransferase (ALT/SGPT) 20 U/L 01/11/18 0000 Alkaline Phosphatase 57 U/L 01/11/18 0000 Random Glucose 147 mg/dl H 01/11/18 0000 Creatinine 1.20 mg/dl 01/11/18 0000 Blood Urea Nitrogen 18 mg/dl 01/12/18 0557 Creatinine 1.00 mg/dl 01/12/18 0557 Blood Urea Nitrogen 16 mg/dl 01/13/18 0416 Creatinine 1.00 mg/dl 01/13/18 0416 Blood Urea Nitrogen 18 mg/dl 01/14/18 0407 Creatinine 1.00 mg/dl 01/14/18 0407 Blood Urea Nitrogen 16 mg/dl 01/15/18 0400 Creatinine 0.90 mg/dl 01/15/18 0400 Total Bilirubin 0.9 mg/dl 01/12/18 0557 Aspartate Amino Transf (AST/SGOT) 22 U/L 01/12/18 0557 Alanine Aminotransferase (ALT/SGPT) 19 U/L 01/12/18 0557 Alkaline Phosphatase 43 U/L 01/12/18 0557 C-Reactive Protein 15.1 mg/dl H 01/13/18 0416 C-Reactive Protein 9.0 mg/dl H 01/14/18 0407 Total Bilirubin 0.5 mg/dl 01/14/18 0407 Aspartate Amino Transf (AST/SGOT) 26 U/L 01/14/18 0407 Alanine Aminotransferase (ALT/SGPT) 25 U/L 01/14/18 0407 Alkaline Phosphatase 37 U/L 01/14/18 0407 Total Bilirubin 0.6 mg/dl 01/15/18 0400 Aspartate Amino Transf (AST/SGOT) 29 U/L 01/15/18 0400 Alanine Aminotransferase (ALT/SGPT) 30 U/L 01/15/18 0400 Alkaline Phosphatase 39 U/L 01/15/18 0400 Creatinine 1.10 mg/dl 01/17/18 0559 Creatinine 0.90 mg/dl 01/18/18 0534 Creatinine 0.80 mg/dl 01/20/18 0608 Creatinine 1.00 mg/dl 01/21/18 0521 Blood Urea Nitrogen 16 mg/dl 01/21/18 0521 Blood Urea Nitrogen 15 mg/dl 01/20/18 0608 Blood Urea Nitrogen 19 mg/dl 01/18/18 0534 Blood Urea Nitrogen 21 mg/dl 01/17/18 0559 Aspartate Amino Transf (AST/SGOT) 48 U/L H 01/17/18 0559 Alanine Aminotransferase (ALT/SGPT) 43 U/L 01/17/18 0559 Alkaline Phosphatase 41 U/L 01/17/18 0559 C-Reactive Protein 5.9 mg/dl H 01/17/18 0559 C-Reactive Protein 4.4 mg/dl H 01/19/18 0555 Aspartate Amino Transf (AST/SGOT) 29 U/L 01/21/18 0521 Alanine Aminotransferase (ALT/SGPT) 39 U/L 01/21/18 0521 Alkaline Phosphatase 44 U/L 01/21/18 0521 Urine RBC 86 /HPF 01/11/18 1105 Urine WBC 6 /HPF 01/11/18 1105 Influenza Virus Type A (PCR) Negative 01/11/18 1343 Influenza Virus Type B (PCR) Negative 01/11/18 1343 Blood cultures from 01/14/18 have no growth x2 Urine culture from 01/11/18 has no growth SPEC #: [id number] CHAPARRO: 01/11/18-1049 STATUS: COMP REQ #: [id number] RECD: 01/11/18-[address]: DIONICIO REEVES MD SOURCE: BLOOD PER ENTR: 01/11/18-[address]: MANAS RAMIREZ MD [facility]: ORDERED: BCGS, CULT BLOOD - Procedure Result Verified BLOOD CULTURE GRAM STAIN Final 01/13/18-0305 ANAEROBIC BOTTLE POSITIVE GRAM POSITIVE COCCI IN CLUSTERS POSITIVE BLOOD CULTURE GRAM STAIN REPORT CALLED TO: [facility] DATE/TIME REPORT CALLED: 01/13/18 @0302 CALLED BY: QUE AVERY BLOOD CULTURE Final 01/16/18-1131 Organism 1 STAPHYLOCOCCUS EPIDERMIDIS GROWTH PRESENT IN THE ANAEROBIC BOTTLE ID AND SENSITIVITY TO FOLLOW NO GROWTH IN AEROBIC BOTTLE AFTER 5 DAYS. STA EPIDER M.I.C. RX --------- --- CIPROFLOXACIN 4 R CLINDAMYCIN >=8 R ERYTHROMYCIN >=8 R GENTAMICIN <=0.5 S LEVOFLOXACIN >=8 R LINEZOLID 1 S MOXIFLOXACIN 2 S NITROFURANTOIN <=16 S OXACILLIN <=0.25 S BENZYLPENICILLIN >=0.5 R QUINUPRISTIN/DALFOPRISTIN <=0.25 S RIFAMPIN <=0.5 S TETRACYCLINE 2 S TIGECYCLINE 0.25 S TRIMETHOPRIM/SULFAMETHOXAZOLE >=320 R VANCOMYCIN 1 S Imaging 01/14/18 PICC line placement 01/12/18 Echo - see scanned results for details. Bovine prosthetic aortic valve. No AR. Mild MR/TR. No obvious valve vegetations or on pacer wires 01/11/18 Abd/Pelvis CT - Discitis/osteomyelitis at L4-5. There are inflammatory changes in the anterior paraspinal soft tissues at L4-5. No abscess in the anterior paraspinal soft tissues. No definite evidence of epidural abscess. Multiple chronic findings in the abdomen and pelvis as detailed in the body of report. 01/11/[address] - Discitis/osteomyelitis at L4-5. There are inflammatory changes in the anterior paraspinal soft tissues at L4-5. No abscess in the anterior paraspinal soft tissues. No definite evidence of epidural abscess. Multiple chronic findings in the abdomen and pelvis as detailed in the body of report. 01/11/18 Abd/pelvis CT - 1. No acute intra-abdominal abnormality identified. 2. Sigmoid diverticulosis without radiographic indication diverticulitis. Moderate stool seen throughout colon. 3. There is worsening endplate changes at the L4-5 level without discrete soft tissue density. This may represent early discitis/osteomyelitis. 4. Other stable chronic findings as above. 01/11/[address] - 1. Senescent changes without acute abnormality. 2. Mild left maxillary sinus disease. 01/11/[address] - 1. No acute osseous or acute alignment abnormality of the lumbar spine. 2. The L4-5 level does show worsening irregular endplate changes with probable mild soft tissue prominence in the anterior and inferior left lateral aspects. This may be secondary to osteomyelitis/discitis. 3. Other chronic stable findings as above. 01/11/18 CXR - 1. No acute cardiopulmonary process. Condition: Improved Discharge: Hospice Discharge Instructions Home Meds Active Scripts Olanzapine (OLANZAPINE ODT) 5 Mg Tab.rapdis, 2.5-5 MG PO Q1H PRN for SEVERE AGITATION for 30 Days, Prov:DOE DON MD 01/21/18 Morphine Sulfate (MORPHINE SULFATE) 2 Mg/1 Ml Cartridge, 1-4 MG IVP Q30MIN PRN for PAIN for 30 Days, Prov:DOE DON MD 01/21/18 Lorazepam (LORAZEPAM) 2 Mg/1 Ml Vial, 1-2 MG IVP Q20M PRN for seizure/agitation for 30 Days, VIAL Prov:DOE DON MD 01/21/18 Lidocaine (Lidocaine) 5 % Adh..patch, 1 PATCH TD Q12H for 30 Days, #30 PATCH Prov:MANAS RAMIREZ MD 11/13/17 Discontinued Reported Medications Tamsulosin Hcl (TAMSULOSIN HCL) 0.4 Mg Cap.er.24h, 1 CAP PO HS, CAP 11/27/17 Aspirin (ASPIR 81) 81 Mg Tablet.dr, 1 TAB PO QDAY, TAB 04/05/17 Discontinued Scripts Potassium Chloride (Potassium Chloride) 20 Meq Tablet.er, 10 MEQ PO DAILY for 90 Days, #90 TAB 4 Refills Prov:MANAS RAMIREZ MD 12/24/17 Furosemide (FUROSEMIDE) 40 Mg Tablet, 0.5 TAB PO DAILY, #90 TAB 3 Refills Prov:MANAS RAMIREZ MD 12/24/17 Diclofenac Sodium 1% Gel (VOLTAREN 1% GEL) 100 Gm Gel..gram., 2 GM TOP TID for 30 Days, #1 TUBE Prov:MANAS RAMIREZ MD 11/13/17 Acetaminophen 500 Mg Tab (ACETAMINOPHEN EXTRA STRENGTH) 500 Mg Tablet, 1000 MG PO Q8H for 90 Days, TAB Prov:MANAS RAMIREZ MD 11/07/17 Atorvastatin Calcium (ATORVASTATIN CALCIUM) 10 Mg Tablet, 1 TAB PO QDAY for 90 Days, #90 TAB 4 Refills Prov:MANAS RAMIREZ MD 08/28/17 Levothyroxine Sodium (LEVOTHYROXINE SODIUM) 50 Mcg Tablet, 1 TAB PO QDAY, #90 TAB 4 Refills Prov:MANAS RAMIREZ MD 07/10/17 Allopurinol (ZYLOPRIM) 300 Mg Tablet, 1 TAB PO QDAY, #90 TAB 4 Refills Prov:MANAS RAMIREZ MD 06/08/17 Metoprolol Succinate (METOPROLOL SUCCINATE) 100 Mg Tab.er.24h, 1 TAB PO QDAY, #90 TAB 4 Refills Prov:MANAS RAMIREZ MD 04/11/17 Copies to: MANAS RAMIREZ MD ; Venous Thromboembolism Antithrombotics Is Pt On Any Antithrombotics?: Yes Problem Qualifiers (1) Discitis: Spinal region: lumbar Qualified Codes: M46.46 - Discitis, unspecified, lumbar region DOE DON MD Jan 21, 2018 13:23
[2018-01-21] MEDS ORDERED: LORA-1455 PO (14:22)
[2018-01-21] MEDS ORDERED: MORP100S32 PO (14:22)
[2018-01-21] MEDS ORDERED: HYOS-22 PO (14:30)
[2018-01-22] MEDS ORDERED: ACET650S35 RC (11:48)
[2018-01-22] MEDS ORDERED: KETO30CA16 IM (11:48)
== END 2018-01-21 14:20 | disposition hospice, inpatient (51) | DRG 315 ==
LOC: ER 10:28 → MED 20:06
PROVIDERS: ADMIT Internal Medicine; ATTEND Internal Medicine
PROC: 02HV33Z Insertion of Infusion Device into Superior Vena Cava, Percutaneous Approach (ICD-10-PCS; principal; 2018-01-14)
PROC: B518YZA Fluoroscopy of Superior Vena Cava using Other Contrast, Guidance (ICD-10-PCS; 2018-01-14)
PROC: B548ZZA Ultrasonography of Superior Vena Cava, Guidance (ICD-10-PCS; 2018-01-14)
DX: T82.7XXA Infection and inflammatory reaction due to other cardiac and vascular devices, implants and grafts, initial encounter (principal); M46.26 Osteomyelitis of vertebra, lumbar region; F05 Delirium due to known physiological condition; B95.7 Other staphylococcus as the cause of diseases classified elsewhere; M46.46 Discitis, unspecified, lumbar region; F03.90 Unspecified dementia, unspecified severity, without behavioral disturbance, psychotic disturbance, mood disturbance, and anxiety; I10 Essential (primary) hypertension; E03.9 Hypothyroidism, unspecified; R32 Unspecified urinary incontinence; Z90.5 Acquired absence of kidney; Z95.3 Presence of xenogenic heart valve; Z95.0 Presence of cardiac pacemaker; Z51.5 Encounter for palliative care; Z85.51 Personal history of malignant neoplasm of bladder; Z86.19 Personal history of other infectious and parasitic diseases; Z85.528 Personal history of other malignant neoplasm of kidney; Z91.14 Patient's other noncompliance with medication regimen; Z87.440 Personal history of urinary (tract) infections; Z88.1 Allergy status to other antibiotic agents; Z88.5 Allergy status to narcotic agent; Z88.0 Allergy status to penicillin; Z91.048 Other nonmedicinal substance allergy status; Z88.6 Allergy status to analgesic agent
CPT/HCPCS: 36415; 36569; 70450; 71045; 72131; 72132; 74176; 74177; 76937; 80202; 81001; 82040; 82247; 82310; 82374; 82435; 82565; 82947; 83605; 84075; 84132; 84155; 84295; 84450; 84460; 84520; 85025; 85651; 86140; 87040; 87088; 87186; 87502; 93306; 96361; 96365; 96366; 96375; 97162; 97166; 99285; A4216; C1751; J0692; J0696; J1650; J2060; J2270; J3370; J3490; J7030; J7050; Q9967

== ENCOUNTER → 2018-01-11 | Outpatient (CLI) | payer MEDICARE, BC ==
[~2018-01-11] MED LIST changes: +HYOS-22 PO; +LORA-1455 PO; +LORA2VIA28 IVP; +MORP100S32 PO; +MORP2CAR IVP; +OLAN5TAB PO
[2018-01-12 13:41] VITALS: BMI 26.1
== END ==
LOC: AMB 09:21
PROVIDERS: ATTEND Nurse Practitioner
DX: R53.1 Weakness (principal); I95.9 Hypotension, unspecified; N39.0 Urinary tract infection, site not specified
CPT/HCPCS: A0425; A0427

== ENCOUNTER → 2018-01-21 | Outpatient (CLI) | payer MEDICARE, BC ==
[2018-01-12 13:41] VITALS: BMI 26.1
[~2018-01-21] MED LIST changes: +ACET650S35 RC; +HYOS-22 PO; +KETO30CA16 IM; +LORA-1455 PO; +LORA2VIA28 IVP; +MORP100S32 PO; +MORP2CAR IVP; +OLAN5TAB PO
== END ==
LOC: AMB 14:10
PROVIDERS: ATTEND Nurse Practitioner
DX: R53.1 Weakness (principal)
CPT/HCPCS: A0425; A0428